=== PATIENT | female | born 1950 | race Caucasian/White ===

== ENCOUNTER 2020-07-04 12:52 | Outpatient (CLI) | payer MEDICARE, SELFPAY ==
--- NOTE | 2020-07-04 13:45 | MR_ITS ---
WS: [id number] MRI CERVICAL SPINE HISTORY: CERVICAL DISC DISORDER COMPARISON: None available. Normal cervical alignment with no compression fracture or significant disc space narrowing. Minimal disc desiccation throughout the cervical spine without narrowing. No marrow edema or fracture . Craniocervical junction, C1 and C2 relationship, odontoid process and soft tissues are normal. C2-C3: Normal. C3-C4: Mild osteophytic ridging and annular disc bulging with a shallow central disc protrusion. Mild narrowing of the central canal. C4-C5: Mild annular disc bulging and small foraminal osteophytes. Mild narrowing of the central canal . C5-C6: Diffuse annular disc bulging and osteophytic ridging. Effacement of CSF. Mild to moderate cent ral and bilateral foraminal stenosis. Slightly greater RIGHT foraminal narrowing. C6-C7: Mild annular disc bulging without stenosis. C7-T1: Normal. Paraspinal soft tissue are normal. MR/MR cervical spin wo con* [id number] IMPRESSION: 1. Mild to moderate central and bilateral foraminal stenosis, RIGHT greater th an LEFT at C5-6. 2. Very mild narrowing of the central canal at C3-4 and C4-5.
== END 2020-07-04 12:53 | disposition home or self-care (01) ==
LOC: RADSHAW 12:54
PROVIDERS: PCP Family Medicine; Visit Provider Family Medicine
DX: M50.90 Cervical disc disorder, unspecified, unspecified cervical region (principal); M48.02 Spinal stenosis, cervical region
CPT/HCPCS: 72141

== ENCOUNTER 2020-08-16 06:00 | Outpatient (RCR) | payer MEDICARE, SELFPAY | END 2020-09-10 23:59 | disposition home or self-care (01) | LOC: APT 06:00 | PROVIDERS: PCP Family Medicine; Visit Provider Family Medicine | DX: M50.90 Cervical disc disorder, unspecified, unspecified cervical region (principal) | CPT/HCPCS: 97110; 97162 ==

== ENCOUNTER 2020-09-11 06:00 | Outpatient (RCR) | payer MEDICARE, SELFPAY | END 2020-10-08 23:59 | disposition home or self-care (01) | LOC: APT 06:00 | PROVIDERS: PCP Family Medicine; Visit Provider Family Medicine | DX: M50.90 Cervical disc disorder, unspecified, unspecified cervical region (principal) | CPT/HCPCS: 97110 ==

== ENCOUNTER 2021-08-23 13:55 | Outpatient (CLI) | payer MEDICARE, SELFPAY ==
--- NOTE | 2021-08-23 14:05 | MM_ITS ---
WS: [id number] BILATERAL DIGITAL SCREENING MAMMOGRAPHY WITH CAD CLINICAL INFORMATION: SCREENING HISTORY: Screening mammogram. No current complaints. COMPARISON: TECHNIQUE: Bilateral CC and MLO views. FINDINGS: Scattered fibroglandular densities bilaterally. Punctate and lucent centered calcifications. 9 mm asy mmetric ovoid density posterior depth right breast best seen on the cc view outer quadrant. This appe ars new since 2018. Recommend further evaluation with spot compression views and ultrasound. Benign p unctate clustered calcifications. Left breast is unremarkable and unchanged. MM/[place] [id number] IMPRESSION: BI-RADS: 0-Incomplete: Need additional imaging evaluation FOLLOW UP: Need Additional Imaging RECOMMEND RIGHT BREAST DIAGNOSTIC MAMMOGRAPHY AND ULTRASOUND IN FURTHER EVALUAT ION.
--- NOTE | 2021-08-23 15:05 | XR_ITS ---
WS: [id number] DEXA (DUAL ENERGY X-RAY ABSORPTIOMETRY) Bone mineral density was performed using a [employer] machine. HISTORY: POSTMENOPAUSAL COMPARISON: 03/02/2014 Lumbar spine BMD (L1-L4): 1.333 g/cm2 T score: 1.3 Z score: 2.2 Total hip BMD: Left: 1.129 g/cm2. T score: 1.0 Z score: 2.0 Right: 1.145 g/cm2. T score: 1.1 Z score: 2.1 10 year probability of a major osteoporotic fracture is 7%. Compared to the prior study from 03/02/2014. Lumbar spine bone mineral density has increased by 3.2%. Bilateral hips bone mineral density has decreased by 2.9%. XR/XR DEXA axial skeleton* [id number] IMPRESSION: NORMAL BONE MINERAL DENSITY based upon the WHO classification for females. Very mild improvement in bone mineral density within the lumbar spine but significa nt decrease of bone mineral density within the hips.
== END 2021-08-23 13:56 | disposition home or self-care (01) ==
LOC: RADSHAW 14:03
PROVIDERS: PCP Family Medicine; Visit Provider Family Medicine
DX: Z12.31 Encounter for screening mammogram for malignant neoplasm of breast (principal); Z78.0 Asymptomatic menopausal state
CPT/HCPCS: 77067; 77080

== ENCOUNTER 2021-09-18 10:14 | Outpatient (CLI) | payer MEDICARE, SELFPAY ==
--- NOTE | 2021-09-18 10:26 | US_ITS ---
WS: [id number] RIGHT DIGITAL MAMMOGRAPHY WITH CAD CLINICAL INFORMATION: ABNORMAL MAMMOGRAM RT BREAST COMPARISON: None. TECHNIQUE: 4 views of the right breast were obtained. FINDINGS: Scattered fibroglandular densities of the right breast. Incidental punctate calcifications RIGHT sera st. Vascular calcification. Again seen is a 9 mm asymmetric ovoid density posterior depth RIGHT breas t. This partially compresses out on the spot compression views. Ultrasound is pending. . ULTRASOUND BREAST RIGHT TECHNIQUE: Ultrasound right breast focused area of concern. CLINICAL INFORMATION: ABNORMAL MAMMOGRAM RT BREAST FINDINGS: Ultrasound RIGHT breast 9 to 12:00 position. Dense underlying band of parenchymal tissue 9 o'clock po sition 3 cm from the nipple. No cystic or solid lesions. No suspicious findings. No lesions to target for biopsy. US/US breast RT limited* [id number] IMPRESSION: BI-RADS: 2-Benign FOLLOW UP: 1 Year Follow-up Recommend return to annual screening mammography.
== END 2021-09-18 10:15 | disposition home or self-care (01) ==
LOC: RADSHAW 10:18
PROVIDERS: PCP Family Medicine; Visit Provider Family Medicine
DX: R92.8 Other abnormal and inconclusive findings on diagnostic imaging of breast (principal)
CPT/HCPCS: 76642; 77065

== ENCOUNTER 2021-10-02 08:43 | Outpatient (CLI) | payer MEDICARE, SELFPAY ==
--- NOTE | 2021-10-02 08:50 | XR_ITS ---
WS: [id number] Exam: XR hip LT 2-3V wo/w pel* [id number] Date/Time of Exam: 10/02/2021 9:02 AM Reason For Exam: LEFT LEG PAIN No acute fracture or dislocation. The joint compartment relatively well maintained. There is soft tis jacek calcification along the greater trochanter that might reflect calcific bursitis. Bony changes of the visualized pelvis that might represent diffuse idiopathic skeletal hyperostosis XR/XR hip LT 2-3V wo/w pel* [id number] IMPRESSION: 1. No fracture or dislocation. 2. Calcification along the greater trochanter that might reflect calcific bursi tis.
--- NOTE | 2021-10-02 08:50 | XR_ITS ---
WS: [id number] Exam: XR femur LT min 2V* [id number] Date/Time of Exam: 10/02/2021 9:02 AM Reason For Exam: LEFT LEG PAIN No fracture or dislocation. Unremarkable soft tissues. Soft tissue ossifications along the greater tr ochanter that might reflect calcific bursitis. XR/XR femur LT min 2V* [id number] IMPRESSION: 1. No fracture or dislocation. 2. Soft tissue ossification along the greater trochanter that might represent c alcific bursitis.
--- NOTE | 2021-10-02 08:50 | XR_ITS ---
WS: [id number] Exam: XR knee LT 1-2V [id number] Date/Time of Exam: 10/02/2021 9:02 AM Reason For Exam: LEFT LEG PAIN No fracture or dislocation noted. No joint effusion. The joint compartments are relatively well maint ained. XR/XR knee LT 1-2V [id number] IMPRESSION: 1. Negative left knee.
== END 2021-10-02 08:44 | disposition home or self-care (01) ==
LOC: RAD 08:48
PROVIDERS: PCP Family Medicine; Visit Provider Family Medicine
DX: M79.605 Pain in left leg (principal)
CPT/HCPCS: 73502; 73552; 73560

== ENCOUNTER → 2021-12-11 13:11 | Outpatient (BNVA) | payer MEDICARE, SELFPAY | PROVIDERS: PCP Family Medicine; Visit Provider Family Medicine | DX: M54.9 Dorsalgia, unspecified (principal); E03.9 Hypothyroidism, unspecified; I10 Essential (primary) hypertension | CPT/HCPCS: 84443 ==

== ENCOUNTER → 2022-04-26 09:26 | Outpatient (BNVA) | payer MEDICARE, SELFPAY | PROVIDERS: PCP Family Medicine; Visit Provider Family Medicine | DX: R30.0 Dysuria (principal) | CPT/HCPCS: 81000; 87077; 87086; 87184 ==

== ENCOUNTER → 2022-05-16 10:57 | Outpatient (BNVA) | payer MEDICARE, SELFPAY | PROVIDERS: PCP Family Medicine; Visit Provider Family Medicine | DX: N39.0 Urinary tract infection, site not specified (principal); R10.9 Unspecified abdominal pain | CPT/HCPCS: 81000 ==

== ENCOUNTER → 2022-08-06 09:29 | Outpatient (BNVA) | payer MEDICARE, SELFPAY | PROVIDERS: PCP Family Medicine; Visit Provider Family Medicine | DX: Z00.00 Encounter for general adult medical examination without abnormal findings (principal); E11.9 Type 2 diabetes mellitus without complications; R30.0 Dysuria; R10.9 Unspecified abdominal pain | CPT/HCPCS: 80053; 80061; 81000; 83036; 85025; 87086 ==

== ENCOUNTER → 2022-09-13 11:19 | Outpatient (BNVA) | payer MEDICARE, SELFPAY | PROVIDERS: PCP Family Medicine; Visit Provider Family Medicine | DX: E87.1 Hypo-osmolality and hyponatremia (principal) | CPT/HCPCS: 80048 ==

== ENCOUNTER 2022-10-21 08:47 | Outpatient (CLI) | payer MEDICARE, SELFPAY ==
--- NOTE | 2022-10-21 09:02 | MM_ITS ---
WS: [id number] BILATERAL SCREENING DIGITAL TOMOSYNTHESIS MAMMOGRAM WITH CAD HISTORY: SCREENING COMPARISON: 09/18/2021, 03/02/2014, 03/17/2014, 05/25/2015 Bilateral CC and MLO views with tomosynthesis and synthetic mammography submitted. Computer aided det ection analyzed. Breast composition: There are scattered areas of fibroglandular density. No suspicious masses, microc alcifications or architectural distortion. Bilateral breast calcifications are benign. MM/[place] [id number] IMPRESSION: BI-RADS: 2-Benign FOLLOW UP: 1 Year Follow-up
== END 2022-10-21 08:48 | disposition home or self-care (01) ==
PROVIDERS: PCP Family Medicine; Visit Provider Family Medicine
DX: Z12.31 Encounter for screening mammogram for malignant neoplasm of breast (principal)
CPT/HCPCS: 77063; 77067

== ENCOUNTER 2022-11-06 05:02 | Emergency (ER) | payer MEDICARE, SELFPAY ==
[2022-11-06 05:12] VITALS: BP 199/64; PULSE 69; RESP 18; TEMP 36.6; O2SAT 95
--- NOTE | 2022-11-06 05:17 | ED_ITS ---
Documented by User: Long Daugherty MD 11/06/22 05:47 HPI - Headache General: Chief Complaint: Headache Stated Complaint: left ear pain Time Seen by Provider: 11/06/22 05:04 Source: patient Mode of arrival: ambulatory Limitations: no limitations History of Present Illness: 71-year-old female states that she has had a headache along with some left ear pain that is gradually began over the last 3 days states her pain is currently a 7 out of 10 its gradually worsened this is n ot the worst take of her life denies any neck pain or stiffness denies any fevers. She denies any blurred vision. She does have a history of hypertension she states she has not taken her hydrochlorothiazide because her sodium was too low she is hypertensive here. Associated symptoms: Deny chest pain, fever(s), nausea, rash or vomiting Review of Systems Const: Denies: fever(s), chills, body aches or change in appetite Eyes: Denies: blurry vision or eye discomfort ENMT: Reports: ear or mastoid pain; Denies: throat pain or dental pain Card: Denies: chest pain Resp: Denies: dyspnea GI: Denies: abdominal pain, nausea, vomiting or diarrhea : Denies: dysuria Musc: Denies: neck pain or back pain Skin/Breast: Denies: rash Neuro: Reports: headache(s) Psych: Denies: depression Adolfo/Lymph: Denies: easy bruising All/Imm: Denies: urticaria PFSH ED PFSH: Medical History Hypertension Social History Smoking and tobacco status: never smoked Alcohol intake: never Physical Exam Const: COMMON NORMALS: no acute distress and patient oriented x3 HENMT: COMMON NORMALS: normocephalic, atraumatic and TM's normal bilaterally HEAD & SCALP: normocephalic and atraumatic TYMPANIC MEMBRANE: TM's normal bilaterally OTHER: no mastoid tenderness Eye: COMMON NORMALS: Equal, round and reactive pupils present and EOMs intact bilaterally PUPIL: Yes Equal, round and reactive pupils present Neck/C-Spine: COMMON NORMALS: full ROM and supple Chest: COMMONS NORMALS: normal inspection of the chest and normal palpation of entire chest wall Resp: COMMON NORMALS: normal respiratory effort, No retractions, No use of accessory muscles and clear to auscultation bilaterally AUSCULTATION: clear to auscultation bilaterally Cardio: COMMON NORMALS: regular rate, regular rhythm and No murmurs present (Cardio) RATE: regular rate RHYTHM: regular rhythm GI: COMMON NORMALS: Normal to inspection, nondistended, normoactive bowel sounds present, Soft to palpation, non-tender and no masses PALPATION: Yes Soft to palpation Extremity: COMMON NORMALS: normal to inspection and full ROM Neuro: COMMON NORMALS: patient oriented x3, moves all extremities and no focal motor deficits Psych: COMMON NORMALS: mental status grossly normal, Normal thought process present and cooperative THOUGHT PROCESS: Normal thought process present Skin: COMMON NORMALS: no rashes or lesions noted and no wounds GENERAL SKIN EXAM: no rashes or lesions noted Course Vital Signs: Vital signs: Vital Signs Temperature 97.8 F 11/06/22 05:12 Pulse Rate 70 11/06/22 07:09 Respiratory Rate 14 11/06/22 07:09 Blood Pressure 152/87 11/06/22 07:09 Pulse Oximetry 95 11/06/22 07:09 Oxygen Delivery Me thod 11/06/22 07:09 MDM - Headache Lab Data 11/06/22 05:50 11/06/22 05:[address] 11/06/22 05:45 IMPRESSION: 1. No acute intracranial abnormality. 2. Moderate chronic microvascular ischemic disease. Chest X-Ray 11/06/22 07:23 IMPRESSION: Unremarkable chest radiograph. Laboratory Results WBC 5.8 10^3/uL (4.0-10.0) 11/06/22 05:50 RBC 4.67 10^6/uL (4.1-5.3) 11/06/22 05:50 Hgb 13.2 g/dL (11.5-15.3) 11/06/22 05:50 Hct 41.8 % (37.0-47.0) 11/06/22 05:50 MCV 89.5 fl (81-99) 11/06/22 05:50 MCH 28.3 pg (28.0-34.0) 11/06/22 05:50 MCHC 31.6 g/dL (30.0-36.0) 11/06/22 05:50 RDW 14.1 % (12.1-15.1) 11/06/22 05:50 Plt Count 199 10^3/cmm (130-400) 11/06/22 05:50 MPV 10.2 fL (7.4-10.4) 11/06/22 05:50 Neut % (Auto) 53.5 % 11/06/22 05:50 Lymph % (Auto) 35.6 % 11/06/22 05:50 Allen % (Auto) 5.8 % 11/06/22 05:50 Eos % (Auto) 4.1 % 11/06/22 05:50 Baso % (Auto) 0.7 % 11/06/22 05:50 Neut # (Auto) 3.12 10^3/uL (1.8-7.7) 11/06/22 05:50 Lymph # (Auto) 2.1 10^3/uL (0.8-4.8) 11/06/22 05:50 Allen # (Auto) 0.3 10^3/uL (0.2-0.9) 11/06/22 05:50 Eos # (Auto) 0.2 10^3/uL (0.0-0.8) 11/06/22 05:50 Baso # (Auto) 0.0 10^3/uL (0.0-0.1) 11/06/22 05:50 Nucleated RBC % (auto) 0 % 11/06/22 05:50 Nucleated RBCs # 0.0 /100WBC 11/06/22 05:50 Sodium 137 mmol/L (136-145) 11/06/22 05:50 Potassium 3.9 mmol/L (3.5-5.1) 11/06/22 05:50 Chloride 105 mmol/L (98-107) 11/06/22 05:50 Carbon Dioxide 21 mmol/L (22-29) L 11/06/22 05:50 Anion Gap 14.9 (5-19) 11/06/22 05:50 BUN 9 mg/dL (8-23) 11/06/22 05:50 Creatinine 0.8 mg/dL (0.5-0.9) 11/06/22 05:50 GFR Calculation Not Reportable 11/06/22 05:50 Glucose 113 mg/dL (65-115) 11/06/22 05:50 Calculated Osmolality 283 mOsm/kg (285-295) L 11/06/22 05:50 Calcium 9.2 mg/dL (8.5-10.5) 11/06/22 05:50 Total Bilirubin 0.4 mg/dL (0.15-1.2) 11/06/22 05:50 AST 19 U/L (0-32) 11/06/22 05:50 ALT 14 U/L (0-33) 11/06/22 05:50 Alkaline Phosphatase 102 U/L (35-105) 11/06/22 05:50 Troponin T Baseline 7 ng/L (0-10) 11/06/22 05:50 Troponin T 120 Minute 6.00 ng/L (0-10) 11/06/22 08:17 Delta Troponin T -1 ABS# (0-10) L 11/06/22 08:17 Total Protein 7.4 g/dL (6.6-8.7) 11/06/22 05:50 Albumin 3.9 g/dL (3.5-5.2) 11/06/22 05:50 Globulin 3.5 g/dL (1.3-4.6) 11/06/22 05:50 Discharge Plan Discharge Patient Disposition: Home Clinical Impression: Headache, Earache Condition: Stable Prescriptions: New Naprosyn 500 mg tablet 500 mg PO BID PRN (Reason: pain) Qty: 20 0RF Norvasc 10 mg tablet 10 mg PO DAILY Qty: 30 0RF lisinopril 10 mg tablet 10 mg PO DAILY Qty: 30 0RF aspirin 81 mg tablet,delayed release (DR/EC) 81 mg PO DAILY Qty: 30 0RF No Action levothyroxine 75 mcg tablet 75 mcg PO DAILY hydrochlorothiazide 25 mg tablet See Rx Instructions .ROUTE .COMPLEX Qty: 90 3RF Hold Instructions: low sodium Dose Instruction: TAKE 1 TABLET BY MOUTH ONCE DAILY Rx Instructions: TAKE 1 TABLET BY MOUTH ONCE DAILY potassium chloride 10 mEq capsule, extended release See Rx Instructions .ROUTE .COMPLEX Qty: 90 3RF Dose Instruction: TAKE 1 CAPSULE BY MOUTH DAILY Rx Instructions: TAKE 1 CAPSULE BY MOUTH DAILY omeprazole 20 mg capsule,delayed release(DR/EC) See Rx Instructions .ROUTE .COMPLEX Qty: 90 3RF Dose Instruction: TAKE 1 CAPSULE BY MOUTH ONCE DAILY FOR GERD Rx Instructions: TAKE 1 CAPSULE BY MOUTH ONCE DAILY FOR GERD Discharge Orders: Discharge ED (Routine); Ordered 11/06/22 Ordered By: Geovany Mariscal Referrals: Solo Sanchez MD [Primary Care Provider] - Discharge Diet: Advance as tolerated Discharge Activity: Resume usual activity Patient Instructions: Acute Headache (ED), Earache (ED), Hypertension (ED) Activity Restrictions/Additional Instructions: You were seen today for headache elevated blood pressure CT and cardiac enzymes EKGs were all normal. Recommend you start on Norvasc 10 mg daily lisinopril 10 mg daily as well as aspirin daily follow-up with your primary care doctor in 2 days to recheck your blood pressure. Sign Out Sign Out Data: Patient Sign Out occurred on 11/06/22 at 06:03. Patient's care was discussed, and care was transferred from to Geovany Mariscal DO. Coding Level of Care Code ED Double Ending Machine Operator for Chg Fwd Documented by User: Geovany Mariscal DO 11/06/22 13:51 HPI - Headache General: Chief Complaint: Headache Stated Complaint: left ear pain Time Seen by Provider: 11/06/22 05:04 [facility] ED PFSH: Medical History Hypertension Social History Smoking and tobacco status: never smoked Alcohol intake: never Course Vital Signs: Vital signs: Vital Signs Temperature 97.8 F 11/06/22 05:12 Pulse Rate 70 11/06/22 07:09 Respiratory Rate 14 11/06/22 07:09 Blood Pressure 152/87 11/06/22 07:09 Pulse Oximetry 95 11/06/22 07:09 Oxygen Delivery Me thod 11/06/22 07:09 MDM - Headache Medical Decision Making Patient care handoff received from Dr. Willow continuation of ED evaluation. I personally saw and evaluated patient and reperformed pinto portions of E/M. CT of head negative blood pressure controlled cardiac enzymes done were also negative. Labs unremarkable overall clinically patient has no focal logic deficits no indication for of emergent condition at this point we will discharge patient home on Norvasc and lisinopril follow-up with Dr. Rojas within the next 2 days to reevaluate blood pressure. Return if is further problems. Medical Records I reviewed the patient's medical records. Lab Data I reviewed the patient's lab results. 11/06/22 05:50 11/06/22 05:[address] 11/06/22 05:45 IMPRESSION: 1. No acute intracranial abnormality. 2. Moderate chronic microvascular ischemic disease. Chest X-Ray 11/06/22 07:23 IMPRESSION: Unremarkable chest radiograph. Laboratory Results WBC 5.8 10^3/uL (4.0-10.0) 11/06/22 05:50 RBC 4.67 10^6/uL (4.1-5.3) 11/06/22 05:50 Hgb 13.2 g/dL (11.5-15.3) 11/06/22 05:50 Hct 41.8 % (37.0-47.0) 11/06/22 05:50 MCV 89.5 fl (81-99) 11/06/22 05:50 MCH 28.3 pg (28.0-34.0) 11/06/22 05:50 MCHC 31.6 g/dL (30.0-36.0) 11/06/22 05:50 RDW 14.1 % (12.1-15.1) 11/06/22 05:50 Plt Count 199 10^3/cmm (130-400) 11/06/22 05:50 MPV 10.2 fL (7.4-10.4) 11/06/22 05:50 Neut % (Auto) 53.5 % 11/06/22 05:50 Lymph % (Auto) 35.6 % 11/06/22 05:50 Allen % (Auto) 5.8 % 11/06/22 05:50 Eos % (Auto) 4.1 % 11/06/22 05:50 Baso % (Auto) 0.7 % 11/06/22 05:50 Neut # (Auto) 3.12 10^3/uL (1.8-7.7) 11/06/22 05:50 Lymph # (Auto) 2.1 10^3/uL (0.8-4.8) 11/06/22 05:50 Allen # (Auto) 0.3 10^3/uL (0.2-0.9) 11/06/22 05:50 Eos # (Auto) 0.2 10^3/uL (0.0-0.8) 11/06/22 05:50 Baso # (Auto) 0.0 10^3/uL (0.0-0.1) 11/06/22 05:50 Nucleated RBC % (auto) 0 % 11/06/22 05:50 Nucleated RBCs # 0.0 /100WBC 11/06/22 05:50 Sodium 137 mmol/L (136-145) 11/06/22 05:50 Potassium 3.9 mmol/L (3.5-5.1) 11/06/22 05:50 Chloride 105 mmol/L (98-107) 11/06/22 05:50 Carbon Dioxide 21 mmol/L (22-29) L 11/06/22 05:50 Anion Gap 14.9 (5-19) 11/06/22 05:50 BUN 9 mg/dL (8-23) 11/06/22 05:50 Creatinine 0.8 mg/dL (0.5-0.9) 11/06/22 05:50 GFR Calculation Not Reportable 11/06/22 05:50 Glucose 113 mg/dL (65-115) 11/06/22 05:50 Calculated Osmolality 283 mOsm/kg (285-295) L 11/06/22 05:50 Calcium 9.2 mg/dL (8.5-10.5) 11/06/22 05:50 Total Bilirubin 0.4 mg/dL (0.15-1.2) 11/06/22 05:50 AST 19 U/L (0-32) 11/06/22 05:50 ALT 14 U/L (0-33) 11/06/22 05:50 Alkaline Phosphatase 102 U/L (35-105) 11/06/22 05:50 Troponin T Baseline 7 ng/L (0-10) 11/06/22 05:50 Troponin T 120 Minute 6.00 ng/L (0-10) 11/06/22 08:17 Delta Troponin T -1 ABS# (0-10) L 11/06/22 08:17 Total Protein 7.4 g/dL (6.6-8.7) 11/06/22 05:50 Albumin 3.9 g/dL (3.5-5.2) 11/06/22 05:50 Globulin 3.5 g/dL (1.3-4.6) 11/06/22 05:50 Discharge Plan Discharge Patient Disposition: Home Clinical Impression: Headache, Earache Condition: Stable Prescriptions: New Naprosyn 500 mg tablet 500 mg PO BID PRN (Reason: pain) Qty: 20 0RF Norvasc 10 mg tablet 10 mg PO DAILY Qty: 30 0RF lisinopril 10 mg tablet 10 mg PO DAILY Qty: 30 0RF aspirin 81 mg tablet,delayed release (DR/EC) 81 mg PO DAILY Qty: 30 0RF No Action levothyroxine 75 mcg tablet 75 mcg PO DAILY hydrochlorothiazide 25 mg tablet See Rx Instructions .ROUTE .COMPLEX Qty: 90 3RF Hold Instructions: low sodium Dose Instruction: TAKE 1 TABLET BY MOUTH ONCE DAILY Rx Instructions: TAKE 1 TABLET BY MOUTH ONCE DAILY potassium chloride 10 mEq capsule, extended release See Rx Instructions .ROUTE .COMPLEX Qty: 90 3RF Dose Instruction: TAKE 1 CAPSULE BY MOUTH DAILY Rx Instructions: TAKE 1 CAPSULE BY MOUTH DAILY omeprazole 20 mg capsule,delayed release(DR/EC) See Rx Instructions .ROUTE .COMPLEX Qty: 90 3RF Dose Instruction: TAKE 1 CAPSULE BY MOUTH ONCE DAILY FOR GERD Rx Instructions: TAKE 1 CAPSULE BY MOUTH ONCE DAILY FOR GERD Discharge Orders: Discharge ED (Routine); Ordered 11/06/22 Ordered By: Geovany Mariscal Referrals: Solo Sanchez MD [Primary Care Provider] - Discharge Diet: Advance as tolerated Discharge Activity: Resume usual activity Patient Instructions: Acute Headache (ED), Earache (ED), Hypertension (ED) Activity Restrictions/Additional Instructions: You were seen today for headache elevated blood pressure CT and cardiac enzymes EKGs were all normal. Recommend you start on Norvasc 10 mg daily lisinopril 10 mg daily as well as aspirin daily follow-up with your primary care doctor in 2 days to recheck your blood pressure. Sign Out Sign Out Data: Patient Sign Out occurred on 11/06/22 at 06:03. Patient's care was discussed, and care was transferred from to Geovany Mariscal DO. Coding Level of Care Code ED Double Ending Machine Operator for Meenakshi Paige
[2022-11-06] MEDS: HYDROcodone-acetaminophen 5-325 mg Tablet 1 TAB PO (05:26)
[2022-11-06] MEDS: hyDRALAzine 20 mg/mL INJ 1 mL 10 MG IM (05:26)
--- NOTE | 2022-11-06 05:45 | CTR_ITS ---
PROCEDURE INFORMATION: Exam: CT Head Without Contrast Exam date and time: 11/06/2022 6:38 AM Age: 71 years old Clinical indication: Pain; Headache; Additional info: SMITH TECHNIQUE: Imaging protocol: Computed tomography of the head without contrast. Radiation optimization: All CT scans at this facility use at least one of these dose optimization techniques: automated exposure control; mA and/or kV adjustment per patient size (includes targeted exams where dose is matched to clinical indication); or iterative reconstruction. REPORTING DATA: Count of CT and Cardiac NM exams in prior 12 months: This patient has received 0 known CTs and 0 known cardiac nuclear medicine studies in the 12 months prior to the current study. COMPARISON: MR head wo/w con [id number] 04/26/2019 8:33 AM RADIATION DOSE METRICS: Total DLP (mGy-cm): 1077.54 FINDINGS: Brain: No acute hemorrhage identified. No large territorial areas of hypoattenuation concerning for ischemic infarct identified. No intracranial mass effect. Subcortical and periventricular white matter hypoattenuation likely consistent with moderate chronic microvascular ischemic disease. Cerebral ventricles: The ventricles are within normal limits. Paranasal sinuses: The visualized sinuses are unremarkable. Mastoid air cells: The visualized mastoid air cells are well aerated. Bones/joints: The osseous structures are intact. Soft tissues: Unremarkable. CT/CT head wo con* [id number] IMPRESSION: 1. No acute intracranial abnormality. 2. Moderate chronic microvascular ischemic disease.
[2022-11-06 05:46] VITALS: BP 190/77
[2022-11-06 06:02] LABS: Basophils % 0.7 %; Eosinophils # 0.2 10^3/uL (0.0-0.8); Eosinophils % 4.1 %; Hematocrit 41.8 % (37.0-47.0); Hemoglobin 13.2 g/dL (11.5-15.3); Lymphocytes # 2.1 10^3/uL (0.8-4.8); Lymphocytes % 35.6 %; Mean Corpuscular HGB Conc 31.6 g/dL (30.0-36.0); Mean Corpuscular Hemoglobin 28.3 pg (28.0-34.0); Mean Corpuscular Volume 89.5 fl (81-99); Mean Platelet Volume 10.2 fL (7.4-10.4); Monocytes # 0.3 10^3/uL (0.2-0.9); Monocytes % 5.8 %; Neutrophils # 3.12 10^3/uL (1.8-7.7); Neutrophils % 53.5 %; Nucleated Red Blood Cells % 0 %; Platelet Count 199 10^3/cmm (130-400); Red Blood Count 4.67 10^6/uL (4.1-5.3); Red Cell Distribution Width 14.1 % (12.1-15.1); White Blood Count 5.8 10^3/uL (4.0-10.0)
[2022-11-06] MEDS: lisinopril 10 mg Tablet PO (06:09)
[2022-11-06] MEDS: enalaprilat 1.25 mg/mL Inj 0.625 MG IVP (06:10)
[2022-11-06] MEDS: hyDRALAzine 20 mg/mL INJ 1 mL 10 MG IVP (06:10)
[2022-11-06 06:21] LABS: Alanine Aminotransferase 14 U/L (0-33); Albumin Level 3.9 g/dL (3.5-5.2); Alkaline Phosphatase 102 U/L (35-105); Anion Gap 14.9 (5-19); Aspartate Amino Transferase 19 U/L (0-32); Blood Urea Nitrogen 9 mg/dL (8-23); Calcium 9.2 mg/dL (8.5-10.5); Carbon Dioxide 21 mmol/L (22-29); Chloride 105 mmol/L (98-107); Globulin 3.5 g/dL (1.3-4.6); Glucose 113 mg/dL (65-115); Osmolality Calculated 283 mOsm/kg (285-295); Potassium 3.9 mmol/L (3.5-5.1); Sodium 137 mmol/L (136-145); Total Bilirubin 0.4 mg/dL (0.15-1.2); Total Protein 7.4 g/dL (6.6-8.7)
[2022-11-06 06:30] VITALS: BP 166/88; PULSE 73; RESP 24; O2SAT 98
--- NOTE | 2022-11-06 06:32 | PC.NURSE ---
to room with pt. pt c/o cramping in left leg/right arm/abd that was not a symptom prior. also coughing to clear her throat saying it is very dry. md notified to come to room and assess the pt due to symptom change. EKG ordered and completed. pt states she is hurting in her kidneys and feels like she needs to urinate, however, when bsc brought to room, she is unable to urinate.
[2022-11-06 07:09] VITALS: BP 152/87; PULSE 70; RESP 14; O2SAT 95
--- NOTE | 2022-11-06 07:23 | XR_ITS ---
WS: [id number] Exam: XR chest 1V portable [id number] Date/Time of Exam: 11/06/2022 7:33 AM Reason For Exam: chest pain Comparison 10/01/2016. Findings: The lungs are clear and fully expanded. Costophrenic angles are sharp. No infiltrates. Bronchovascula r relief appears normal. Cardiac silhouette is unremarkable. Bony elements are intact. XR/XR chest 1V portable [id number] IMPRESSION: Unremarkable chest radiograph.
--- NOTE | 2022-11-06 07:35 | ECG_ITS ---
[facility] Test Date: 2022-11-06 Pat Name: Nahed Carcamo Department: Room: Gender: Female Technical Support Representative: : 1950 Requested By: Geovany Menjivar Order Number: [id number] Leroy MD: Jasbir Oliver M.D. Measurements Intervals [place] Rate: 75 P: 55 OR: 144 QRS: 15 QRSD: 87 T: 58 QT: 402 QTc: 450 Interpretive Statements SINUS RHYTHM NONSPECIFIC T-WAVE ABNORMALITY Compared to ECG 07/31/2017 05:31:44 Sinus arrhythmia no longer present T-wave abnormality still present Electronically Signed On 11-06-2022 23:51:52 CDT by Jasbir Oliver M.D. [id number]
[2022-11-06 07:52] LABS: Troponin(5th) Baseline 7 ng/L (0-10)
[2022-11-06] MEDS: acetaminophen 500 mg Tablet 1000 MG PO (08:46)
[2022-11-06 09:30] LABS: Troponin 5 2HR Delta -1 ABS# (0-10)
== END 2022-11-06 10:25 | disposition home or self-care (01) ==
PROVIDERS: Emergency Medicine; Emergency Provider Family Medicine; PCP Family Medicine
DX: R51.9 Headache, unspecified (principal); H92.02 Otalgia, left ear; I10 Essential (primary) hypertension
CPT/HCPCS: 36415; 70450; 71045; 80053; 84484; 85025; 93005; 96372; 96374; 96375; 99285; J0360; J3490

== ENCOUNTER → 2022-11-07 06:54 | Outpatient (BNVA) | payer MEDICARE, SELFPAY | PROVIDERS: PCP Family Medicine; Visit Provider Family Medicine | DX: R10.9 Unspecified abdominal pain (principal); N39.0 Urinary tract infection, site not specified | CPT/HCPCS: 81000; 87086 ==

== ENCOUNTER 2022-11-26 16:25 | Outpatient (CLI) | payer MEDICARE, SELFPAY ==
--- NOTE | 2022-11-26 16:45 | MR_ITS ---
WS: [id number] MRI HEAD WITH CONTRAST TECHNIQUE: Sagittal T1, T2 axial, T2 axial FLAIR, axial susceptibility weighted imaging, axial diffus ion weighted images, and coronal T2 images were obtained. Pre and post-T1 axial and post T1 coronal i mages. ADC and FSPGR images. CLINICAL INFORMATION: diplopia, sub acute. r/o CVA COMPARISON: CT November 06, 2022 and MRI 9 16,019 FINDINGS: No evidence restricted diffusion to suggest acute ischemia. Ventricular system and basal cisterns are patent. Advanced small vessel changes. Mild parenchymal volume loss. Small vessel changes in the jesse s. Normal vascular flow voids at the skull base. No extra-axial fluid collections. RIGHT maxillary sinusitis with air-fluid level. Mild mucosal thickening RIGHT mastoid tip. LEFT masto id air cells well aerated. No hemosiderin on susceptibly weighted images. Mild symmetric atrophy temp oral lobes and hippocampal formations. No abnormal gadolinium enhancement. Normal dural venous sinuse s. Normal optic chiasm and pituitary infundibulum. Cavernous sinuses and Meckel's cave appear normal . MR/MR head wo/w con [id number] IMPRESSION: 1. No evidence of restricted diffusion to suggest acute ischemia. 2. Advanced small vessel changes with mild parenchymal volume loss. Small vess el changes in the polly. Small vessel changes slightly progressed compared to but similar in appearance. 3. RIGHT maxillary sinusitis with air-fluid level. 4. No hemosiderin on the susceptibly weighted images. 5. No abnormal intracranial enhancement. 6. No other acute findings.
[2022-11-26] MEDS: gadobenate dimeglumine 20 mL vial IV (17:34)
== END 2022-11-26 16:26 | disposition home or self-care (01) ==
LOC: RAD 16:30
PROVIDERS: PCP Family Medicine; Visit Provider Family Medicine
DX: H53.2 Diplopia (principal); J32.9 Chronic sinusitis, unspecified
CPT/HCPCS: 70553; A9577

== ENCOUNTER → 2023-01-10 09:47 | Outpatient (BNVA) | payer MEDICARE, SELFPAY | PROVIDERS: PCP Family Medicine; Visit Provider Family Medicine | DX: I10 Essential (primary) hypertension (principal); E87.1 Hypo-osmolality and hyponatremia; E11.9 Type 2 diabetes mellitus without complications | CPT/HCPCS: 80053; 80061; 83036 ==

== ENCOUNTER → 2023-03-22 10:49 | Outpatient (BNVA) | payer MEDICARE, SELFPAY | PROVIDERS: PCP Family Medicine; Visit Provider Emergency Medicine | DX: R39.9 Unspecified symptoms and signs involving the genitourinary system (principal) | CPT/HCPCS: 81000; 87086 ==

== ENCOUNTER 2023-04-02 18:11 | Observation (INO) | payer MEDICARE, SELFPAY ==
[2023-04-02 18:21] VITALS: BP 158/93; PULSE 67; RESP 18; TEMP 36.4; O2SAT 96
[2023-04-02 20:42] LABS: Basophils # 0.1 10^3/uL (0.0-0.1); Basophils % 0.5 %; Eosinophils # 0.2 10^3/uL (0.0-0.8); Eosinophils % 2.4 %; Hematocrit 43.2 % (36-47); Lymphocytes # 1.6 10^3/uL (0.8-4.8); Lymphocytes % 15.8 %; Mean Corpuscular HGB Conc 31.3 g/dL (30-55); Mean Corpuscular Volume 89.6 fl (85-98); Mean Platelet Volume 11.2 fL (7.4-10.4); Monocytes # 0.4 10^3/uL (0.2-0.9); Monocytes % 4.3 %; Neutrophils # 7.53 10^3/uL (1.8-7.7); Neutrophils % 76.5 %; Nucleated Red Blood Cells % 0 %; Platelet Count 219 10^3/cmm (157-399); Red Blood Count 4.82 10^6/uL (3.85-5.65); Red Cell Distribution Width 13.9 % (12.1-15.1); White Blood Count 9.84 10^3/uL (3.29-11.43)
[2023-04-02 21:11] LABS: Albumin Level 4.6 g/dL (3.5-5.2); Alkaline Phosphatase 137 U/L (35-105); Anion Gap 14.2 (5-19); Aspartate Amino Transferase 27 U/L (0-32); Blood Urea Nitrogen 13 mg/dL (8-23); Calcium 9.9 mg/dL (8.5-10.5); Carbon Dioxide 25 mmol/L (22-29); Chloride 105 mmol/L (98-107); Creatinine Clr Calc Pharmacy 65.9635; Globulin 3.3 g/dL (1.3-4.6); Glucose 129 mg/dL (65-115); Lipase 26 U/L (13-60); Osmolality Calculated 292 mOsm/kg (285-295); Potassium 4.2 mmol/L (3.5-5.1); Sodium 140 mmol/L (136-145); Total Bilirubin 0.3 mg/dL (0.15-1.2); Total Protein 7.9 g/dL (6.6-8.7)
[2023-04-02 21:14] LABS: Alanine Aminotransferase 16 U/L (0-33)
--- NOTE | 2023-04-02 21:45 | CTR_ITS ---
PROCEDURE INFORMATION: Exam: CT Head Without Contrast Exam date and time: 04/02/2023 10:32 PM Age: 72 years old Clinical indication: Patient HX: Dizziness with n/v TECHNIQUE: Imaging protocol: Computed tomography of the head without contrast. Radiation optimization: All CT scans at this facility use at least one of these dose optimization techniques: automated exposure control; mA and/or kV adjustment per patient size (includes targeted exams where dose is matched to clinical indication); or iterative reconstruction. REPORTING DATA: Count of CT and Cardiac NM exams in prior 12 months: This patient has received [address] and 0 known cardiac nuclear medicine studies in the 12 months prior to the current study. COMPARISON: MR head wo/w con [id number] 11/26/2022 5:02 PM RADIATION DOSE METRICS: Total DLP (mGy-cm): 1116.18 FINDINGS: Brain: No acute intracranial hemorrhage, abnormal extra-axial fluid collection, mass effect, or midline shift. Moderate periventricular and subcortical white matter hypodensities compatible with changes of moderate burden chronic small-vessel disease. Cerebral ventricles: The ventricular system is within normal limits of variation for the patient's age. Paranasal sinuses: Visualized paranasal sinuses are grossly unremarkable. No air fluid levels. Mastoid air cells: Visualized mastoid air cells are well aerated. Bones/joints: No acute fracture. Soft tissues: Grossly unremarkable. Vasculature: Atheromatous changes are seen within the bilateral carotid siphons and V4 segment of the right vertebral artery. CT/CT head wo con* [id number] IMPRESSION: 1. No acute intracranial findings. 2. Other chronic/incidental findings as described above.
--- NOTE | 2023-04-02 21:47 | CTR_ITS ---
PROCEDURE INFORMATION: Exam: CTA Head With Contrast, Arteriography Exam date and time: 04/02/2023 10:36 PM Age: 72 years old Clinical indication: Dizziness and giddiness; Patient HX: Dizziness with n/v TECHNIQUE: Imaging protocol: Computed tomographic angiography of the head with contrast. Exam focused on the arteries. 3D rendering (Not supervised by radiologist): MIP and/or 3D reconstructed images were created by the technologist. Radiation optimization: All CT scans at this facility use at least one of these dose optimization techniques: automated exposure control; mA and/or kV adjustment per patient size (includes targeted exams where dose is matched to clinical indication); or iterative reconstruction. Contrast material: OMNI 350; Contrast volume: 100 ml; Contrast route: INTRAVENOUS (IV); REPORTING DATA: Count of CT and Cardiac NM exams in prior 12 months: This patient has received [address] and 0 known cardiac nuclear medicine studies in the 12 months prior to the current study. COMPARISON: CT head wo con* [id number] 04/02/2023 10:32 PM RADIATION DOSE METRICS: Total DLP (mGy-cm): 479.12 FINDINGS: ANTERIOR CIRCULATION: Right internal carotid artery: Intracranial segment is patent with no significant stenosis. No aneurysm. Right middle cerebral artery: No occlusion or significant stenosis. No aneurysm. Right anterior cerebral artery: No occlusion or significant stenosis. No aneurysm. Left internal carotid artery: Intracranial segment is patent with no significant stenosis. No aneurysm. Left middle cerebral artery: No occlusion or significant stenosis. No aneurysm. Left anterior cerebral artery: No occlusion or significant stenosis. No aneurysm. POSTERIOR CIRCULATION: Right vertebral artery: No occlusion or significant stenosis. No aneurysm. Left vertebral artery: No occlusion or significant stenosis. No aneurysm. Basilar artery: No occlusion or significant stenosis. No aneurysm. Right posterior cerebral artery: origin of the right posterior cerebral artery. No occlusion or significant stenosis. No aneurysm. Left posterior cerebral artery: No occlusion or significant stenosis. No aneurysm. Brain: No acute intracranial hemorrhage, abnormal extra-axial fluid collection, mass effect, or midline shift. Moderate periventricular and subcortical white matter hypodensities compatible with changes of moderate burden chronic small-vessel disease. Cerebral ventricles: No ventriculomegaly. Bones/joints: No acute fracture. Moderate degenerative changes of the right temporomandibular joint. [id number] cervical spondylosis. Soft tissues: Grossly unremarkable. PROCEDURE INFORMATION: Exam: CTA Neck With Contrast Exam date and time: 04/02/2023 10:36 PM Age: 72 years old Clinical indication: Dizziness and giddiness; Patient HX: Dizziness with n/v TECHNIQUE: Imaging protocol: Computed tomographic angiography of the neck with contrast. 3D rendering (Not supervised by radiologist): MIP and/or 3D reconstructed images were created by the technologist. Radiation optimization: All CT scans at this facility use at least one of these dose optimization techniques: automated exposure control; mA and/or kV adjustment per patient size (includes targeted exams where dose is matched to clinical indication); or iterative reconstruction. Contrast material: OMNI 350; Contrast volume: 100 ml; Contrast route: INTRAVENOUS (IV); REPORTING DATA: Count of CT and Cardiac NM exams in prior 12 months: This patient has received [address] and 0 known cardiac nuclear medicine studies in the 12 months prior to the current study. COMPARISON: MR cervical spin wo con* [id number] 07/04/2020 1:34 PM RADIATION DOSE METRICS: Total DLP (mGy-cm): 479.12 FINDINGS: Right common carotid artery: No stenosis. No dissection or occlusion. Right internal carotid artery: No stenosis of the extracranial segment. No dissection or occlusion. Right external carotid artery: No occlusion or stenosis of the origin. Left common carotid artery: No stenosis. No dissection or occlusion. Left internal carotid artery: No stenosis of the extracranial segment. No dissection or occlusion. Left external carotid artery: No occlusion or stenosis of the origin. Right vertebral artery: No stenosis. No dissection or occlusion. Left vertebral artery: No stenosis. No dissection or occlusion. Soft tissues: Grossly unremarkable. Bones/joints: No acute fracture. CT/CT angio headneck* [id number] IMPRESSION: 1. No large vessel stenosis, dissection, occlusion, or aneurysm. 2. origin of the right posterior cerebral artery. 3. Moderate periventricular and subcortical white matter hypodensities compatible with changes of moderate burden chronic small-vessel disease. 4. Moderate degenerative changes of the right temporomandibular joint. IMPRESSION: 1. No stenosis, occlusion, dissection, or aneurysm. 2. There are few prominent and enlarged mediastinal lymph nodes measuring up to 11 mm in short axis. Findings may represent reactive adenopathy however other etiologies cannot be excluded. Correlate and follow-up as clinically indicated. REFERENCES: NASCET CRITERIA. The degree of stenosis in the cervical segment of the internal carotid artery is based on NASCET criteria. Normal is no stenosis. Mild is less than 50% stenosis. Moderate is 50-69% stenosis. Severe is 70% to 99% stenosis. Total occlusion is no detectable patent lumen.
--- NOTE | 2023-04-02 21:48 | ED_ITS ---
HPI - Nausea/Vomiting/Diarrhea General: Chief complaint: Nausea/Vomiting/Diarrhea Stated complaint: n/v Time Seen by Provider: 04/02/23 21:31 Source: patient Mode of arrival: ambulatory Limitations: no limitations History of Present Illness: 72-year-old female states over the last week she has been having some dizziness she states that she is diagnosed UTI and she has a symptoms before when she had a UTI she states today it gotten worse and started having some nausea and vomiting she states that she feels improved currently and the dizziness has improved. She states that she just switched to a new antibiotic today by urgent care. She denies any abdominal pain denies any fevers. Associated nausea: Yes Associated symtoms: Reports dizziness and nausea; Denies chest pain or headache(s) Review of Systems Const: Denies: fever(s) or chills Eyes: Denies: blurry vision or eye discomfort ENMT: Denies: throat pain or dental pain Card: Denies: chest pain Resp: Denies: dyspnea GI: Reports: nausea and vomiting; Denies: abdominal pain or diarrhea Musc: Denies: neck pain or back pain Skin/Breast: Denies: rash Neuro: Reports: dizziness; Denies: headache(s) PFSH ED PFSH: Medical History Hypertension Social History Smoking and tobacco status: never smoked Alcohol intake: never Substance/Drug Use: never Physical Exam Const: COMMON NORMALS: no acute distress, patient oriented x3 and healthy appearing HENMT: COMMON NORMALS: normocephalic and atraumatic HEAD & SCALP: normocephalic and atraumatic Eye: COMMON NORMALS: Equal, round and reactive pupils present and EOMs intact bilaterally PUPIL: Yes Equal, round and reactive pupils present Neck/C-Spine: COMMON NORMALS: full ROM and supple Chest: COMMONS NORMALS: normal inspection of the chest Resp: COMMON NORMALS: normal respiratory effort, No retractions, No use of accessory muscles and clear to auscultation bilaterally AUSCULTATION: clear to auscultation bilaterally Cardio: COMMON NORMALS: regular rate, regular rhythm and No murmurs present (Cardio) RATE: regular rate RHYTHM: regular rhythm GI: COMMON NORMALS: Normal to inspection, nondistended, normoactive bowel sounds present, Soft to palpation, non-tender and no masses PALPATION: Yes Soft to palpation Extremity: COMMON NORMALS: normal to inspection and full ROM Neuro: COMMON NORMALS: patient oriented x3, moves all extremities and no focal motor deficits Psych: COMMON NORMALS: mental status grossly normal, Normal thought process present and cooperative THOUGHT PROCESS: Normal thought process present Skin: COMMON NORMALS: no rashes or lesions noted and no wounds GENERAL SKIN EXAM: no rashes or lesions noted Course Vital Signs: Vital signs: Vital Signs Temperature 97.5 F L 04/02/23 18:21 Pulse Rate 67 04/02/23 18:21 Respiratory Rate 18 04/02/23 18:21 Blood Pressure 158/93 04/02/23 18:21 Pulse Oximetry 96 04/02/23 18:21 Oxygen Delivery Me thod Room Air 04/02/23 18:21 MDM - Nausea/Vomiting/Diarrhea Medical Decision Making Patient presents here with vertigo has been on for a week and much worse today her onset was a week ago her vertigo is worsened here even after Antivert she is not able to ambulate due to the vertigo CT angio here is normal she is not a tPA candidate as she is out of the window. spoke to hospitalist and will admit for her severe vertigo. Medical Records I reviewed the patient's medical records. Lab Data I reviewed the patient's lab results. 04/02/23 20:07 04/02/23 20:[address] 04/02/23 21:45 IMPRESSION: 1. No acute intracranial findings. 2. Other chronic/incidental findings as described above. Head/Neck CTA 04/02/23 21:47 IMPRESSION: 1. No large vessel stenosis, dissection, occlusion, or aneurysm. 2. origin of the right posterior cerebral artery. 3. Moderate periventricular and subcortical white matter hypodensities compatible with changes of moderate burden chronic small-vessel disease. 4. Moderate degenerative changes of the right temporomandibular joint. IMPRESSION: 1. No stenosis, occlusion, dissection, or aneurysm. 2. There are few prominent and enlarged mediastinal lymph nodes measuring up to 11 mm in short axis. Findings may represent reactive adenopathy however other etiologies cannot be excluded. Correlate and follow-up as clinically indicated. REFERENCES: NASCET CRITERIA. The degree of stenosis in the cervical segment of the internal carotid artery is based on NASCET criteria. Normal is no stenosis. Mild is less than 50% stenosis. Moderate is 50-69% stenosis. Severe is 70% to 99% stenosis. Total occlusion is no detectable patent lumen. Laboratory Results WBC 9.84 10^3/uL (3.29-11.43) 04/02/23 20:07 RBC 4.82 10^6/uL (3.85-5.65) 04/02/23 20:07 Hgb 13.50 g/dL (11.27-16.99) 04/02/23 20:07 Hct 43.2 % (36-47) 04/02/23 20:07 MCV 89.6 fl (85-98) 04/02/23 20:07 MCH 28.0 pg (27-33) 04/02/23 20:07 MCHC 31.3 g/dL (30-55) 04/02/23 20:07 RDW 13.9 % (12.1-15.1) 04/02/23 20:07 Plt Count 219 10^3/cmm (157-399) 04/02/23 20:07 MPV 11.2 fL (7.4-10.4) H 04/02/23 20:07 Neut % (Auto) 76.5 % 04/02/23 20:07 Lymph % (Auto) 15.8 % 04/02/23 20:07 [place] % (Auto) 4.3 % 04/02/23 20:07 Eos % (Auto) 2.4 % 04/02/23 20:07 Baso % (Auto) 0.5 % 04/02/23 20:07 Neut # (Auto) 7.53 10^3/uL (1.8-7.7) 04/02/23 20:07 Lymph # (Auto) 1.6 10^3/uL (0.8-4.8) 04/02/23 20:07 [place] # (Auto) 0.4 10^3/uL (0.2-0.9) 04/02/23 20:07 Eos # (Auto) 0.2 10^3/uL (0.0-0.8) 04/02/23 20:07 Baso # (Auto) 0.1 10^3/uL (0.0-0.1) 04/02/23 20:07 Nucleated RBC % (auto) 0 % 04/02/23 20:07 Nucleated RBCs # 0.0 /100WBC 04/02/23 20:07 Sodium 140 mmol/L (136-145) 04/02/23 20:07 Potassium 4.2 mmol/L (3.5-5.1) 04/02/23 20:07 Chloride 105 mmol/L (98-107) 04/02/23 20:07 Carbon Dioxide 25 mmol/L (22-29) 04/02/23 20:07 Anion Gap 14.2 (5-19) 04/02/23 20:07 BUN 13 mg/dL (8-23) 04/02/23 20:07 Creatinine 0.8 mg/dL (0.5-0.9) 04/02/23 20:07 GFR Calculation Not Reportable 04/02/23 20:07 Glucose 129 mg/dL (65-115) H 04/02/23 20:07 Calculated Osmolality 292 mOsm/kg (285-295) 04/02/23 20:07 Calcium 9.9 mg/dL (8.5-10.5) 04/02/23 20:07 Total Bilirubin 0.3 mg/dL (0.15-1.2) 04/02/23 20:07 AST 27 U/L (0-32) 04/02/23 20:07 ALT 16 U/L (0-33) 04/02/23 20:07 Alkaline Phosphatase 137 U/L (35-105) H 04/02/23 20:07 Total Protein 7.9 g/dL (6.6-8.7) 04/02/23 20:07 Albumin 4.6 g/dL (3.5-5.2) 04/02/23 20:07 Globulin 3.3 g/dL (1.3-4.6) 04/02/23 20:07 Lipase 26 U/L (13-60) 04/02/23 20:07 Urine Color Yellow (Yellow) 04/02/23 22:51 Urine Appearance Clear (CLEAR) 04/02/23 22:51 Urine pH 6 (5-7) 04/02/23 22:51 Ur Specific [place] 1.015 (1.005-1.030) 04/02/23 22:51 Urine Protein Neg (Negative) 04/02/23 22:51 Urine Glucose (UA) Norm (Normal) 04/02/23 22:51 Urine Ketones Negative (Negative) 04/02/23 22:51 Urine Blood Neg (Negative) 04/02/23 22:51 Urine Nitrate Negative (Negative) 04/02/23 22:51 Urine Bilirubin Neg (Negative) 04/02/23 22:51 Urine Urobilinogen Norm mg/dL (Negative) 04/02/23 22:51 Ur Leukocyte Esterase Trace (Negative) H 04/02/23 22:51 Urine RBC None /hpf (0-2) 04/02/23 22:51 Urine WBC 5-10 /hpf (0-5) H 04/02/23 22:51 Ur Squamous Epith Cells 5-10 /hpf (0-5) H 04/02/23 22:51 Amorphous Sediment Not Reportable 04/02/23 22:51 Urine Bacteria Trace /hpf (NONE) 04/02/23 22:51 Urine Mucus Trace /hpf 04/02/23 22:51 Urine Yeast Trace /hpf 04/02/23 22:51 Discharge Plan Discharge Admit Provider: Estiven Sevilla Clinical Impression: Vertigo, Vomiting Condition: Stable Coding Level of Care Code ED Brake Reliner for Meenakshi Paige
[2023-04-02] MEDS: iohexol 350 mg/mL 500 mL Btl (per mL) IV (22:36)
[2023-04-02] MEDS: hyDRALAzine 20 mg/mL INJ 1 mL 10 MG IVP (22:55)
[2023-04-02] MEDS: meclizine 25 mg tablet 50 MG PO (22:57)
[2023-04-02] MEDS: ondansetron 2 mg/ML SDV 2 mL 4 MG IVP (22:57)
[2023-04-02] MEDS: sodium chloride 0.9% 1,000 ML 999 ML IV (22:57)
[2023-04-02 23:08] LABS: Add Urine Microscopic? YES; Bacteria Urine TRACE /hpf; Bilirubin Urine Neg (Negative); Blood Urine Neg (Negative); Glucose Urine UA Norm (Normal); Ketones Urine Negative (Negative); Leukocyte Esterase Urine Trace (Negative); Mucus Urine TRACE /hpf; Nitrate Urine Negative (Negative); Protein Urine Neg (Negative); Specific Gravity, Urine 1.015 (1.005-1.030); Urine Appearance Clear (CLEAR); Urine Color Yellow (Yellow); Urobilinogen Urine Norm (Negative); pH Urine 6 (5-7)
[2023-04-02 23:10] LABS: Add Urine Culture? No
[2023-04-03] VITALS: BP 148/82; PULSE 89; RESP 17; TEMP 36.4; O2SAT 92
[2023-04-03] MEDS: ondansetron 2 mg/ML SDV 2 mL 4 MG IVP (00:09)
[2023-04-03] MEDS: diazePAM 5 mg Tablet PO (00:09)
[2023-04-03 00:16] VITALS: BP 165/85; PULSE 87; RESP 18; O2SAT 94
--- NOTE | 2023-04-03 00:20 | PC.NURSE ---
Report called to KELY Crane on [place].
--- NOTE | 2023-04-03 01:37 | MR_ITS ---
WS: [id number] MRI BRAIN WITHOUT CONTRAST HISTORY: Dizziness with nausea and vomiting. COMPARISON: 11/26/[address] head 04/02/2023 TECHNIQUE: Diffusion imaging, multiplanar T1, T2 and FLAIR imaging obtained. No evidence for acute infarct or hemorrhage. [place]-white matter differentiation is normal. Moderate atrophy. Moderate T2 and FLAIR signal hyperintensities throughout the white matter. Confluen t white matter disease surrounding the ventricles and more scattered lesions in the subcortical white matter. No hemorrhage. Ventricles and extra-axial spaces are normal. Small amount of ischemic change in the polly bilaterally. Dural venous sinuses and [place] demonstrate no abnormality on this unenhanced studies. Paranasal sinuses: Clear. Mastoid air cells: Normal. Resolved air-fluid level RIGHT maxillary sinus Calvarium and scalp: Intact. IMPRESSION: 1. No acute hemorrhage. Normal diffusion imaging. 2. Moderate atrophy. 3. Moderate to severe small vessel ischemic changes in the supratentorial white matter and moderate in the polly. Similar to the prior MRI of 11/26/2022.
--- NOTE | 2023-04-03 01:39 | PM.HP ---
Providers/Chief Complaint Admitting Physician: Estiven Sevilla Primary Care Provider: Solo Sanchez MD Chief Complaint: n/v History of Present Illness 72-year-old lady has been having episodes of recurrent vertigo, room spinning [id number]. She thought maybe was related to urinary tract infection. Has been recently treated for 1 with cefdinir, but since another antibiotic was added recently she is not sure of the name. In ER some persistent vertigo despite meclizine, Valium. Hypertensive, blood pressure as high as 165/85. History of hypertension, says that a while back her antihypertensives were discontinued by primary provider due to concern for adverse effect. Review of Systems Const: Denies: fever(s), chills, body aches or malaise Eyes: Denies: change in vision ENMT: Denies: throat pain Card: Denies: chest pain, edema, pre-syncope or dyspnea on exertion Resp: Denies: dyspnea, productive cough, change in phlegm color or hemoptysis GI: Denies: abdominal pain, nausea, vomiting, diarrhea, constipation, hematochezia or melena : Denies: flank pain, urinary frequency or hematuria Musc: Denies: back pain, joint swelling or joint redness Skin/Breast: Denies: rash or new lesions Neuro: Reports: dizziness; Denies: headache(s), numbness in extremities, weakness in extremities, confusion or seizure-like activity Medications/Allergies Home Medications Medication Instructions Recorded Confirmed Last Taken Type omeprazole 20 mg capsule,delayed See Rx Instructions .Route 11/01/22 04/02/23 Unknown Rx release .COMPLEX #90 caps aspirin 81 mg tablet,delayed 81 mg PO DAILY #30 tabs 11/06/22 04/02/23 Unknown Rx release levothyroxine 75 mcg tablet See Rx Instructions .Route 03/11/23 04/02/23 Unknown Rx .COMPLEX #90 tabs potassium chloride 10 mEq See Rx Instructions .Route 03/11/23 04/02/23 Unknown Rx capsule,extended release .COMPLEX #90 caps cefdinir 300 mg capsule 300 mg PO Q12H 10 days #20 caps 03/22/23 04/02/23 Unknown Rx fosfomycin tromethamine 3 gram 1 packet PO Q3D 3 doses #1 ea 08/23/23 08/23/23 Unknown Rx oral packet Allergies Allergy/AdvReac Type Severity Reaction Status Date / Time ciprofloxacin Allergy ADR/ALGY-Pa Verified 04/02/23 18:26 lpitations metformin Allergy ADR-Vomitin Verified 04/02/23 18:26 g sulfamethoxazole Allergy ALGY-Hives Verified 04/02/23 18:26 [From Bactrim] trimethoprim [From Bactrim] Allergy ALGY-Hives Verified 04/02/23 18:26 hydrochlorothiazide AdvReac Intermediate hyponatremi Verified 04/02/23 18:26 a PFSH Acute PFSH: Medical History (Updated 04/03/23 @ 02:22 by Estiven Sevilla MD) Abnormal mammogram of right breast Hypertension Hypothalamic hypothyroidism ALANA (obstructive sleep apnea) Social History Smoking and tobacco status: never smoked Alcohol intake: never Substance/Drug Use: never Vitals/I&O/Wt Last Vital Signs Temp 97.6 F 04/03/23 00:00 Pulse 87 04/03/23 00:16 Resp 18 04/03/23 00:16 BP 165/85 04/03/23 00:16 Pulse Ox 94 04/03/23 00:16 O2 Del Method Room Air 04/03/23 00:00 04/02/23 04/02/23 04/03/23 14:59 22:59 06:59 Intake Total 1000 / 1000 Balance 1000 / 1000 Weight last 48 hrs Weight 90.718 kg Physical Exam Narrative: Accompanied by her . Const: COMMON NORMALS: patient oriented x3 and alert GENERAL APPEARANCE: cooperative ORIENTATION/CONSCIOUSNESS: Yes awake HENMT: COMMON NORMALS: oropharynx normal Neck/C-Spine: COMMON NORMALS: no JVD Resp: COMMON NORMALS: normal respiratory effort and clear to auscultation bilaterally AUSCULTATION: clear to auscultation bilaterally Cardio: COMMON NORMALS: no JVD, regular rhythm, S1 normal heart sound present, S2 normal heart sound present and No murmurs present (Cardio) RHYTHM: regular rhythm HEART SOUNDS: S1 normal heart sound present and S2 normal heart sound present GI: COMMON NORMALS: Normal to inspection, nondistended, normoactive bowel sounds present, Soft to palpation and non-tender PALPATION: Yes Soft to palpation Extremity: COMMON NORMALS: no joint enlargement and no pedal edema Neuro: COMMON NORMALS: patient oriented x3 and moves all extremities SENSORIUM/ORIENTATION: Yes alert OTHER: Alert, no trouble following directions. No facial droop. No trouble tracking. Visual tsang full to confrontation. FNF WNL. No upper or lower extremity drift. Sensory exam symmetrical. No sensory extinction. Skin: COMMON NORMALS: no rashes or lesions noted GENERAL SKIN EXAM: no rashes or lesions noted Data 04/02/23 20:07 04/02/23 20:07 A&P Assessment and plan (1) Vertigo: Concern for possible CVA noted in ER. Outside the window for tPA. CT head with moderate white matter hypodensities compatible with moderate chronic small vessel disease. Risk factors for stroke include hypertension, obesity. Assessment requested with MRI brain. Check lipid profile. Otherwise no artery complaints, no ear pain, diminished hearing, drainage or tinnitus. She denies any triggers for the vertigo, denies it being triggered by turning her head, leaning, etc. We will request PT evaluation. Consideration of possible BPPV. Otherwise no signs of sepsis. Afebrile. WBC noted normal. Otherwise unremarkable chemistry with normal electrolytes, unremarkable renal parameters. Noted mild elevation of alk phos. For now we will hold off antihypertensives. Monitor blood pressure. Discussed with her . Discussed with ER physician, ER documentation reviewed. Plan Recent UTI: UA noted with 5 and 10 WBC. 5-10 SEC. Continue cefdinir Hypothyroidism continue levothyroxine. HTN: For now permissive hypertension in case of possible CVA, however, monitor blood pressures, long-term may benefit from optimization of blood pressure control. Reports recently had been taken off of her antihypertensive. Mild elevation of alk phos: Follow-up with PCP. Requested to list home medications, please reconcile once available. Attestations Medical Necessity Statement*: Place in observation for additional assessment of persistent vertigo, assessment for possible posterior circulation CVA in a lady with risk factors. Diagnoses Vertigo [id number]
[2023-04-03 03:33] VITALS: BP 137/74; PULSE 94; RESP 16; TEMP 36.4; O2SAT 90
[2023-04-03 05:30] LABS: Cholesterol 186 mg/dL (0-200); HDL Cholesterol 69 mg/dL (60-100); LDL Cholesterol Calculated 101 mg/dL (50-129); LDL HDL Ratio 1.46 RATIO (0.00-3.22); Triglycerides 80 mg/dL (0-150)
[2023-04-03] MEDS: levothyroxine 75 mcg Tablet PO (05:35)
[2023-04-03 07:12] VITALS: BP 145/81; PULSE 84; RESP 16; TEMP 36.6; O2SAT 93
[2023-04-03] MEDS: cefdinir 300 MG CAPSULE PO (08:00)
[2023-04-03] MEDS: acetaminophen 325 mg Tablet 650 MG PO (08:00)
[2023-04-03] MEDS: aspirin 81 mg EC Tablet PO (08:01)
--- NOTE | 2023-04-03 09:49 | PM.DCS ---
Discharge Providers Date of Admission: 04/02/23 23:46 Date of Discharge: April 03, 2023 Attending Provider at Admission: Estiven Sevilla Attending Provider at Discharge: Jesse Escoto MD Primary Care Provider: Solo Sanchez MD Diagnoses at Discharge Discharge Diagnosis (1) Vertigo: Status: Acute Reason for Visit Reason for Visit: n/v Hospital Course Hospital Course Nahed is a 72-year-old white female who presented with dizziness, vertigo, and vomiting. In the emergency department blood pressure was slightly high. She was recently diagnosed with a UTI, and given cefdinir. She was wondering if the UTI could have been causing an issue. There was concern after evaluation in the ER that MRI would be needed to rule out CVA. CTA, CT scan were not revealing. She was placed under observation and an MRI was performed the day of discharge the demonstrated no CVA. Moderate to the severe small vessel changes similar to prior MRI were noted, atrophy was noted. CTA did not demonstrate any flow-limiting stenosis. Patient and family was informed regarding some lymph nodes that was slightly enlarged in the mediastinum that her primary care provider could follow-up as an outpatient. By time of discharge she had no longer had any dizziness, or nausea. She was ambulating back and forth to the bathroom without vertigo. She was given an opportunity to ask questions, and agreed with the plan. Physical Exam Narrative: General exam no distress Neck supple Cardiovascular regular rate and rhythm without murmur Lungs clear Abdomen is soft Extremities no cyanosis clubbing or edema Neuro no obvious focal deficits Discharge Data Studies Completed and Pending Completed Studies During Hospitalization Category Date Time Status CT head wo con* [id number] Stat Cat Scan 04/02/23 21:45 Completed CTA head neck [CT angio headneck* [id number]] Stat Cat Scan 04/02/23 21:47 Completed MR head wo con* [id number] Routine MRI 04/03/23 01:37 Completed Radiology Impressions Head CT 04/02/23 21:45 IMPRESSION: 1. No acute intracranial findings. 2. Other chronic/incidental findings as described above. Head/Neck CTA 04/02/23 21:47 IMPRESSION: 1. No large vessel stenosis, dissection, occlusion, or aneurysm. 2. origin of the right posterior cerebral artery. 3. Moderate periventricular and subcortical white matter hypodensities compatible with changes of moderate burden chronic small-vessel disease. 4. Moderate degenerative changes of the right temporomandibular joint. IMPRESSION: 1. No stenosis, occlusion, dissection, or aneurysm. 2. There are few prominent and enlarged mediastinal lymph nodes measuring up to 11 mm in short axis. Findings may represent reactive adenopathy however other etiologies cannot be excluded. Correlate and follow-up as clinically indicated. REFERENCES: NASCET CRITERIA. The degree of stenosis in the cervical segment of the internal carotid artery is based on NASCET criteria. Normal is no stenosis. Mild is less than 50% stenosis. Moderate is 50-69% stenosis. Severe is 70% to 99% stenosis. Total occlusion is no detectable patent lumen. Laboratory Results WBC 9.84 10^3/uL (3.29-11.43) 04/02/23 20:07 RBC 4.82 10^6/uL (3.85-5.65) 04/02/23 20:07 Hgb 13.50 g/dL (11.27-16.99) 04/02/23 20:07 Hct 43.2 % (36-47) 04/02/23 20:07 MCV 89.6 fl (85-98) 04/02/23 20:07 MCH 28.0 pg (27-33) 04/02/23 20:07 MCHC 31.3 g/dL (30-55) 04/02/23 20:07 RDW 13.9 % (12.1-15.1) 04/02/23 20:07 Plt Count 219 10^3/cmm (157-399) 04/02/23 20:07 MPV 11.2 fL (7.4-10.4) H 04/02/23 20:07 Neut % (Auto) 76.5 % 04/02/23 20:07 Lymph % (Auto) 15.8 % 04/02/23 20:07 Ray % (Auto) 4.3 % 04/02/23 20:07 Eos % (Auto) 2.4 % 04/02/23 20:07 Baso % (Auto) 0.5 % 04/02/23 20:07 Neut # (Auto) 7.53 10^3/uL (1.8-7.7) 04/02/23 20:07 Lymph # (Auto) 1.6 10^3/uL (0.8-4.8) 04/02/23 20:07 Ray # (Auto) 0.4 10^3/uL (0.2-0.9) 04/02/23 20:07 Eos # (Auto) 0.2 10^3/uL (0.0-0.8) 04/02/23 20:07 Baso # (Auto) 0.1 10^3/uL (0.0-0.1) 04/02/23 20:07 Nucleated RBC % (auto) 0 % 04/02/23 20:07 Nucleated RBCs # 0.0 /100WBC 04/02/23 20:07 Sodium 140 mmol/L (136-145) 04/02/23 20:07 Potassium 4.2 mmol/L (3.5-5.1) 04/02/23 20:07 Chloride 105 mmol/L (98-107) 04/02/23 20:07 Carbon Dioxide 25 mmol/L (22-29) 04/02/23 20:07 Anion Gap 14.2 (5-19) 04/02/23 20:07 BUN 13 mg/dL (8-23) 04/02/23 20:07 Creatinine 0.8 mg/dL (0.5-0.9) 04/02/23 20:07 GFR Calculation Not Reportable 04/02/23 20:07 Glucose 129 mg/dL (65-115) H 04/02/23 20:07 Calculated Osmolality 292 mOsm/kg (285-295) 04/02/23 20:07 Calcium 9.9 mg/dL (8.5-10.5) 04/02/23 20:07 Total Bilirubin 0.3 mg/dL (0.15-1.2) 04/02/23 20:07 AST 27 U/L (0-32) 04/02/23 20:07 ALT 16 U/L (0-33) 04/02/23 20:07 Alkaline Phosphatase 137 U/L (35-105) H 04/02/23 20:07 Total Protein 7.9 g/dL (6.6-8.7) 04/02/23 20:07 Albumin 4.6 g/dL (3.5-5.2) 04/02/23 20:07 Globulin 3.3 g/dL (1.3-4.6) 04/02/23 20:07 Triglycerides 80 mg/dL (0-150) 04/03/23 04:22 Cholesterol 186 mg/dL (0-200) 04/03/23 04:22 LDL Cholesterol, Calc 101 mg/dL (50-129) 04/03/23 04:22 HDL Cholesterol 69 mg/dL (60-100) 04/03/23 04:22 LDL/HDL Ratio 1.46 RATIO (0.00-3.22) 04/03/23 04:22 Cholesterol/HDL Ratio 2.70 mg/dL (0.0-4.40) 04/03/23 04:22 Lipase 26 U/L (13-60) 04/02/23 20:07 Urine Color Yellow (Yellow) 04/02/23 22:51 Urine Appearance Clear (CLEAR) 04/02/23 22:51 Urine pH 6 (5-7) 04/02/23 22:51 Ur Specific [place] 1.015 (1.005-1.030) 04/02/23 22:51 Urine Protein Neg (Negative) 04/02/23 22:51 Urine Glucose (UA) Norm (Normal) 04/02/23 22:51 Urine Ketones Negative (Negative) 04/02/23 22:51 Urine Blood Neg (Negative) 04/02/23 22:51 Urine Nitrate Negative (Negative) 04/02/23 22:51 Urine Bilirubin Neg (Negative) 04/02/23 22:51 Urine Urobilinogen Norm mg/dL (Negative) 04/02/23 22:51 Ur Leukocyte Esterase Trace (Negative) H 04/02/23 22:51 Urine RBC None /hpf (0-2) 04/02/23 22:51 Urine WBC 5-10 /hpf (0-5) H 04/02/23 22:51 Ur Squamous Epith Cells 5-10 /hpf (0-5) H 04/02/23 22:51 Amorphous Sediment Not Reportable 04/02/23 22:51 Urine Bacteria Trace /hpf (NONE) 04/02/23 22:51 Urine Mucus Trace /hpf 04/02/23 22:51 Urine Yeast Trace /hpf 04/02/23 22:51 Vitals Last Vital Signs Temp 97.9 F 04/03/23 07:12 Pulse 84 04/03/23 07:12 Resp 16 04/03/23 07:12 BP 145/81 04/03/23 07:12 Pulse Ox 93 04/03/23 07:12 O2 Del Method Room Air 04/03/23 07:12 Discharge Plan Discharge Patient Disposition: Home Condition: Stable Prescriptions: Continued fosfomycin tromethamine 3 gram packet 1 packet PO Q3D Qty: 1 0RF aspirin 81 mg tablet,delayed release (DR/EC) 81 mg PO DAILY Qty: 30 0RF potassium chloride 10 mEq capsule, extended release 10 meq PO BEDTIME levothyroxine 75 mcg tablet 75 mcg PO QAM omeprazole 20 mg capsule,delayed release(DR/EC) 20 mg PO BEDTIME Discharge Orders: Discharge Order (Routine); Ordered 04/03/23 Ordered By: Jesse Escoto Referrals: Solo Sanchez MD [Primary Care Provider] - 4-7 days Discharge Diet: Usual diet Discharge Activity: Increase activity as tolerated Patient Instructions: Opioid Safety Activity Restrictions/Additional Instructions: May finish your course of cefdinir he was started as an outpatient. Follow-up with Dr. Rojas for hospital follow-up, and to discuss slightly enlarged lymph nodes in the mediastinum. He will decide whether these need repeat imaging in the future Return for any concerns Discharge Attestations Time Spent in Discharge Care*: greater than 30 min Quality Metrics Clinical Quality Measures [ No reported AMI, CVA or VTE this stay] Coding Level of Care Code 15395 Total time (in minutes) for Discharge: 39 Diagnoses Vertigo R42
--- NOTE | 2023-04-03 10:24 | PC.CHAP ---
Pastoral Care Encounter/Spiritual Assessment Type of Contact [] Declined out patient therapist visit [] Patient/Family/Request visit [] Outpatient visit [] Follow-up visit [] Physician referral [] Code/Alert [x] Routine visit [] Staff referral [] Actively dying [] Patient sleeping [] Family support [] [] Out of room [] Palliative care [] [x] Receiving care in room [] Pre-surgical visit [] Trauma [] Long length of stay [] ICU visit [] Other: Relational/Emotional Strength [x] Patient feels connected with others/family/visitors/staff [] Distress [] Loneliness/isolation [] Abandonment Spirituality of Patient [x] Person of Lyn [] Attends Voodoo of their Lyn [x] Believes in Prayer [] Reads Bible or Confucianism materials [] There are Spiritual issues to be addressed Covering [employer] 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 Supervisor Interventions [x] Prayer [x] Active listening [x] Non-anxious presence [x] Spiritual/emotional support [] Crisis/trauma care [x] Spiritual counseling [] Bereavement support [] Provided bereavement packet [] Provided Bible/devotional materials [] Provided toy/stuffed animal, coloring book to patient or family member [] Provided Communion [] Anointing/[place] [] Salvation [x] Completed spiritual assessment [] Other: Impact on Illness or Injury [] Angry [] Fearful [] Anxious [] Often cries [] Exhaustion [] Unable to work [] Unable to attend hoahaoism [] Unable to walk/stand [] Unable to read [] Unable to drive [] Unable to eat/drink [] Unable to sleep [] Unable to be with family [] Patient intubated [] Other: Summary not sure about her health at this time has good attitude well go home Time spent with patient 10 mins
[2023-04-03 11:06] VITALS: BP 145/81; PULSE 84; RESP 16; TEMP 36.6; O2SAT 93
== END 2023-04-03 11:07 | disposition home or self-care (01) ==
LOC: ER 22:04 → MEDSURG 23:46
PROVIDERS: Admitting Provider Internal Medicine; Emergency Provider Emergency Medicine; PCP Family Medicine; Visit Provider Internal Medicine
DX: R42 Dizziness and giddiness (principal); I10 Essential (primary) hypertension; Z79.82 Long term (current) use of aspirin
CPT/HCPCS: 36415; 70450; 70496; 70498; 70551; 80053; 80061; 81000; 81001; 83690; 85025; 87086; 96361; 96374; 96375; 96376; 99285; G0378; J0360; J2405; J7030; J8597; Q9967

== ENCOUNTER → 2023-04-23 15:39 | Outpatient (BNVA) | payer MEDICARE, SELFPAY | PROVIDERS: PCP Family Medicine; Visit Provider Family Medicine | DX: R21 Rash and other nonspecific skin eruption (principal) | CPT/HCPCS: 88304; 88312 ==

== ENCOUNTER → 2023-05-01 09:01 | Outpatient (BNVA) | payer MEDICARE, SELFPAY | PROVIDERS: PCP Family Medicine; Visit Provider Dermatology | DX: L20.89 Other atopic dermatitis (principal); L30.0 Nummular dermatitis; L24.9 Irritant contact dermatitis, unspecified cause | CPT/HCPCS: 99204 ==

== ENCOUNTER → 2023-05-26 15:07 | Outpatient (BNVA) | payer MEDICARE, SELFPAY | PROVIDERS: PCP Family Medicine; Visit Provider Nurse Practitioner Family | DX: L30.0 Nummular dermatitis (principal); L82.1 Other seborrheic keratosis | CPT/HCPCS: 99213 ==

== ENCOUNTER 2023-12-13 09:35 | Emergency (ER) | payer MEDICARE, SELFPAY ==
[2023-12-13 09:46] VITALS: BP 220/108; PULSE 65; RESP 18; TEMP 36.6; O2SAT 97
[2023-12-13] MEDS: ketorolac 30 mg/mL INJ IVP (10:07)
[2023-12-13] MEDS: diphenhydrAMINE 50 mg/mL SDV 1mL IVP (10:08)
[2023-12-13] MEDS: sodium chloride 0.9% 1,000 ML 999 ML IV (10:09)
--- NOTE | 2023-12-13 10:23 | ED_ITS ---
HPI - Headache 2 General: Chief Complaint: Headache Stated Complaint: headache, N Time Seen by Provider: 12/13/23 09:44 Source: patient Mode of arrival: ambulatory History of Present Illness: 72-year-old female who presents to the e mergency room with complaint of headache that began this morning. She complaining of a throbbing frontal headache. She is currently on hydrochlorothiazide at home but no other antihypertensives. She denies any chest pain no head trauma. No takb-sbe-vxysidd medications denies any vision difficulties. MD elicited complaint: headache Location: right and frontal Quality & Timing: throbbing Exacerbating factors: none Relieving factors: nothing Associated symptoms: Deny chest pain, confusion, cough, diaphoresis, eye pain, eye redness, fever(s), lightheadedness, loss of vision, malaise, nausea, neck stiffness, numbness, paresthesias, photophobia, pre-syncope, rash, seizures, short of breath, sound sensitivity, syncope, vomiting or weakness Treatments prior to arrival: none Review of Systems 2 Const: Denies: fever(s), chills, malaise or diaphoresis Card: Denies: chest pain, lightheadedness, syncope or pre-syncope Resp: Denies: dyspnea GI: Denies: abdominal pain, nausea or vomiting : Denies: dysuria, urinary frequency or urinary urgency Musc: Denies: neck pain or back pain Skin/Breast: Denies: rash Neuro: Denies: confusion PFSH ED 2 PFSH: Medical History Nummular eczema Benign positional vertigo Abnormal mammogram of right breast ALANA (obstructive sleep apnea) Hypothalamic hypothyroidism Hypertension Social History Smoking and tobacco/nicotine status: never used tobacco/nicotine Alcohol intake: never Substance/Drug Use: never Physical Exam 2 Const: COMMON NORMALS: no acute distress GENERAL APPEARANCE: cooperative and comfortable ORIENTATION/CONSCIOUSNESS: Yes awake, Yes oriented to person, Yes oriented to place and Yes oriented to time HENMT: COMMON NORMALS: normocephalic, atraumatic and hearing grossly normal bilaterally HEAD & SCALP: normocephalic and atraumatic Eye: DIRECT OPHTHALMOSCOPY: No photophobia Resp: COMMON NORMALS: normal respiratory effort, No retractions, No use of accessory muscles and clear to auscultation bilaterally AUSCULTATION: clear to auscultation bilaterally Cardio: COMMON NORMALS: regular rate, regular rhythm and No murmurs present (Cardio) RATE: regular rate RHYTHM: regular rhythm GI: COMMON NORMALS: Soft to palpation and No hepatosplenomegaly present A USCULTATION: Yes normoactive bowel sounds PALPATION: Yes Soft to palpation, No Tenderness to palpation present (GI), No Guarding due to palpation present (GI) and Yes No hepatosplenomegaly present Extremity: COMMON NORMALS: normal to inspection, capillary refill normal, no clubbing, cyanosis or edema, no calf tenderness and no pedal edema Neuro: SENSORIUM/ORIENTATION: Yes oriented to person, Yes oriented to place and Yes oriented to time Skin: COMMON NORMALS: no rashes or lesions noted GENERAL SKIN EXAM: no rashes or lesions noted Course 2 Vital Signs: Vital signs: Vital Signs Temperature 97.8 F 12/13/23 09:46 Pulse Rate 73 12/13/23 14:06 Respiratory Rate 22 H 12/13/23 12:11 Blood Pressure 147/88 12/13/23 14:06 Pulse Oximetry 98 12/13/23 14:06 Oxygen Delivery Me thod Room Air 12/13/23 09:46 MDM - Headache Medical Decision Making Headache improved with blood pressure control medications given. Will discharge patient home started lisinopril 20 mg daily. Follow-up with primary care within the next week. Medical Records I reviewed the patient's medical records. Lab Data I reviewed the patient's lab results. 12/13/23 Unknown 12/13/23 Unknown Radiology Impressions Chest X-Ray 12/13/23 11:44 IMPRESSION: No acute cardiopulmonary process. Head CT 12/13/23 11:44 IMPRESSION: No large territorial infarct or intracranial bleed. Laboratory Results WBC 7.88 10^3/uL (3.29-11.43) 12/13/23 Unknown RBC 4.90 10^6/uL (3.85-5.65) 12/13/23 Unknown Hgb 13.60 g/dL (11.27-16.99) 12/13/23 Unknown Hct 42.5 % (36-47) 12/13/23 Unknown MCV 86.7 fl (85-98) 12/13/23 Unknown MCH 27.8 pg (27-33) 12/13/23 Unknown MCHC 32.0 g/dL (30-55) 12/13/23 Unknown RDW 13.9 % (12.1-15.1) 12/13/23 Unknown Plt Count 240 10^3/cmm (157-399) 12/13/23 Unknown MPV 11.2 fL (7.4-10.4) H 12/13/23 Unknown Neut % (Auto) 62.3 % 12/13/23 Unknown Lymph % (Auto) 28.0 % 12/13/23 Unknown [place] % (Auto) 4.7 % 12/13/23 Unknown Eos % (Auto) 3.8 % 12/13/23 Unknown Baso % (Auto) 0.9 % 12/13/23 Unknown Neut # (Auto) 4.91 10^3/uL (1.8-7.7) 12/13/23 Unknown Lymph # (Auto) 2.2 10^3/uL (0.8-4.8) 12/13/23 Unknown [place] # (Auto) 0.4 10^3/uL (0.2-0.9) 12/13/23 Unknown Eos # (Auto) 0.3 10^3/uL (0.0-0.8) 12/13/23 Unknown Baso # (Auto) 0.1 10^3/uL (0.0-0.1) 12/13/23 Unknown Nucleated RBC % (auto) 0 % 12/13/23 Unknown Nucleated RBCs # 0.0 /100WBC 12/13/23 Unknown Sodium 133 mmol/L (136-145) L 12/13/23 Unknown Potassium 4.1 mmol/L (3.5-5.1) 12/13/23 Unknown Chloride 97 mmol/L (98-107) L 12/13/23 Unknown Carbon Dioxide 25 mmol/L (22-29) 12/13/23 Unknown Anion Gap 15.1 (5-19) 12/13/23 Unknown BUN 8 mg/dL (8-23) 12/13/23 Unknown Creatinine 0.7 mg/dL (0.5-0.9) 12/13/23 Unknown GFR Calculation Not Reportable 12/13/23 Unknown Glucose 117 mg/dL (65-115) H 12/13/23 Unknown Calculated Osmolality 275 mOsm/kg (285-295) L 12/13/23 Unknown Calcium 9.3 mg/dL (8.5-10.5) 12/13/23 Unknown Total Bilirubin 0.3 mg/dL (0.15-1.2) 12/13/23 Unknown AST 24 U/L (0-32) 12/13/23 Unknown ALT 18 U/L (0-33) 12/13/23 Unknown Alkaline Phosphatase 120 U/L (35-105) H 12/13/23 Unknown Total Protein 7.6 g/dL (6.6-8.7) 12/13/23 Unknown Albumin 4.2 g/dL (3.5-5.2) 12/13/23 Unknown Globulin 3.4 g/dL (1.3-4.6) 12/13/23 Unknown All radiology interpretation(s) finalized by discharge Discharge Plan Discharge Patient Disposition: Home Clinical Impression: Hypertension, Headache Condition: Stable Prescriptions: New lisinopril 20 mg tablet 20 mg PO DAILY Qty: 30 0RF No Action aspirin 81 mg tablet,delayed release (DR/EC) 81 mg PO DAILY Qty: 30 0RF potassium chloride 10 mEq capsule, extended release 10 meq PO BEDTIME levothyroxine 75 mcg tablet 75 mcg PO QAM omeprazole 20 mg capsule,delayed release(DR/EC) 20 mg PO DAILY Discharge Orders: Discharge ED (Routine); Ordered 12/13/23 Ordered By: Geovany Mariscal Referrals: Solo Sanchez MD [Primary Care Provider] - Discharge Diet: Usual diet Discharge Activity: Resume usual activity Patient Instructions: Opioid Safety, Pain Management Activity Restrictions/Additional Instructions: Thank you for choosing [facility] for your healthcare needs today. Please realize this is an emergency room and that we are providing you with a medical screening exam and this may not be complete and all inclusive of all the testing and or work up that you may need to determine your ailment or severity of your illness. It is very important that you follow up as instructed or that you return to the Emergency Department should you have concerns or if your condition changes or worsens in any way. You were seen today with complaints of headache elevated blood pressure. Blood pressure improved with medications given. Recommend starting the antihypertensive 1 tablet daily. Recheck with your primary care doctor within the week Coding Level of Care Code ED Edge Molder for Meenakshi Paige
[2023-12-13] MEDS: hyDRALAzine 20 mg/mL INJ 1 mL IVP (10:28)
[2023-12-13] MEDS: enalaprilat 2.5 mg/2 mL SDV 1.25 MG IVP (11:13)
[2023-12-13 11:27] VITALS: BP 171/65; PULSE 97; RESP 23; O2SAT 97
[2023-12-13 11:33] VITALS: BP 191/54
--- NOTE | 2023-12-13 11:41 | PC.PHAR ---
pt verified medications-pt states she finished her macrobid 100mg q12h on 12/10/23 rx was filled on 12/03/23 7d/s-pt states no longer takes hydroxyzine pamoate 25mg tid ext shows last filled 09/11/23 30d/s-
--- NOTE | 2023-12-13 11:44 | CTR_ITS ---
PROCEDURE INFORMATION: Exam: CT Head Without Contrast Exam date and time: 12/13/2023 1:03 PM Age: 72 years old Clinical indication: Pain; Headache; Additional info: Headache elevated blood pressure TECHNIQUE: Imaging protocol: Computed tomography of the head without contrast. Radiation optimization: All CT scans at this facility use at least one of these dose optimization techniques: automated exposure control; mA and/or kV adjustment per patient size (includes targeted exams where dose is matched to clinical indication); or iterative reconstruction. COMPARISON: MR head wo con* [id number] 04/03/2023 8:32 AM RADIATION DOSE METRICS: Total DLP (mGy-cm): 1147.29 FINDINGS: Brain: Bilateral periventricular and centrum semiovale white matter hypodensities consistent with chronic ischemic small vessel disease. No recent infarct, intracranial bleed or mass effect. Cerebral ventricles: No ventriculomegaly. Paranasal sinuses: Visualized sinuses are unremarkable. No fluid levels. Mastoid air cells: Visualized mastoid air cells are well aerated. Orbital cavities: Bilateral cataract surgery. Bones: Unremarkable. No acute fracture. Soft tissues: Unremarkable. CT/CT head wo con* [id number] IMPRESSION: No large territorial infarct or intracranial bleed.
--- NOTE | 2023-12-13 11:44 | XRR_ITS ---
PROCEDURE INFORMATION: Exam: XR Chest Exam date and time: 12/13/2023 11:50 AM Age: 72 years old Clinical indication: Cough and dyspnea; Patient HX: Dyspnea; Cough TECHNIQUE: Imaging protocol: Radiologic exam of the chest. Views: 1 view. COMPARISON: CR XR chest 1V portable [id number] 11/06/2022 7:39 AM FINDINGS: Lungs: Unremarkable. No consolidation. Pleural spaces: Unremarkable. No pleural effusion. No pneumothorax. Heart/Mediastinum: Unremarkable. No cardiomegaly. Vasculature: Aortic arch calcifications. Unfolding of the thoracic aorta. Bones/joints: Moderate degenerative disease of bilateral acromioclavicular joints. XR/XR chest 1V portable [id number] IMPRESSION: No acute cardiopulmonary process.
[2023-12-13 11:52] LABS: Basophils # 0.1 10^3/uL (0.0-0.1); Basophils % 0.9 %; Eosinophils # 0.3 10^3/uL (0.0-0.8); Eosinophils % 3.8 %; Hematocrit 42.5 % (36-47); Lymphocytes # 2.2 10^3/uL (0.8-4.8); Mean Corpuscular Hemoglobin 27.8 pg (27-33); Mean Corpuscular Volume 86.7 fl (85-98); Mean Platelet Volume 11.2 fL (7.4-10.4); Monocytes # 0.4 10^3/uL (0.2-0.9); Monocytes % 4.7 %; Neutrophils # 4.91 10^3/uL (1.8-7.7); Neutrophils % 62.3 %; Nucleated Red Blood Cells % 0 %; Platelet Count 240 10^3/cmm (157-399); Red Cell Distribution Width 13.9 % (12.1-15.1); White Blood Count 7.88 10^3/uL (3.29-11.43)
[2023-12-13 12:05] LABS: Alanine Aminotransferase 18 U/L (0-33); Albumin Level 4.2 g/dL (3.5-5.2); Alkaline Phosphatase 120 U/L (35-105); Anion Gap 15.1 (5-19); Aspartate Amino Transferase 24 U/L (0-32); Blood Urea Nitrogen 8 mg/dL (8-23); Calcium 9.3 mg/dL (8.5-10.5); Carbon Dioxide 25 mmol/L (22-29); Chloride 97 mmol/L (98-107); Creatinine Clr Calc Pharmacy 65.9635; Globulin 3.4 g/dL (1.3-4.6); Glucose 117 mg/dL (65-115); Osmolality Calculated 275 mOsm/kg (285-295); Potassium 4.1 mmol/L (3.5-5.1); Sodium 133 mmol/L (136-145); Total Bilirubin 0.3 mg/dL (0.15-1.2); Total Protein 7.6 g/dL (6.6-8.7)
[2023-12-13 12:11] VITALS: BP 153/76; PULSE 86; RESP 22; O2SAT 98
--- NOTE | 2023-12-13 12:27 | ECG_ITS ---
[facility] Test Date: 2023-12-13 Pat Name: Nahed Carcamo Department: Room: Gender: Female Shoe Stitcher Odd: : 1950 Requested By: Geovany Menjivar Order Number: [id number] Reading MD: Nico Kearney M.D. Measurements Intervals [place] Rate: 84 P: 60 [place]: 135 QRS: 21 QRSD: 82 T: -60 QT: 305 QTc: 362 Interpretive Statements SINUS RHYTHM NONSPECIFIC ST & T-WAVE ABNORMALITY Compared to ECG 11/06/2022 07:35:05 No significant changes Electronically Signed On 12-14-2023 12:12:58 CDT by Nico Kearney M.D. [id number]
[2023-12-13] MEDS: valproic acid inj 500 MG in sodium chloride 0.9% 50 ML 55 MG IV (12:52)
[2023-12-13 12:56] VITALS: BP 147/88; PULSE 73; O2SAT 98
[2023-12-13 14:06] VITALS: BP 147/88; PULSE 73; O2SAT 98
== END 2023-12-13 14:07 | disposition home or self-care (01) ==
PROVIDERS: Emergency Provider Family Medicine; PCP Family Medicine
DX: R51.9 Headache, unspecified (principal); I10 Essential (primary) hypertension; Z79.82 Long term (current) use of aspirin
CPT/HCPCS: 70450; 71045; 80053; 85025; 93005; 96361; 96365; 96375; 99285; J0360; J1200; J1885; J3490; J7030

== ENCOUNTER 2023-12-15 16:00 | Emergency (ER) | payer MEDICARE, SELFPAY ==
[2023-12-15 16:04] VITALS: BP 213/89; PULSE 72; RESP 16; TEMP 36.4; O2SAT 95
--- NOTE | 2023-12-15 16:10 | XRR_ITS ---
PROCEDURE INFORMATION: Exam: XR Chest Exam date and time: 12/15/2023 4:19 PM Age: 72 years old Clinical indication: Other: Paresthesia TECHNIQUE: Imaging protocol: Radiologic exam of the chest. Views: 1 view. COMPARISON: CR (CHEST, ) 12/13/2023 11:50 AM FINDINGS: Lungs: Unremarkable. No consolidation. Pleural spaces: Unremarkable. No pleural effusion. No pneumothorax. Heart/Mediastinum: Unremarkable. No cardiomegaly. Bones/joints: Unremarkable. XR/XR chest 1V portable [id number] IMPRESSION: No acute findings.
--- NOTE | 2023-12-15 16:10 | CTR_ITS ---
PROCEDURE INFORMATION: Exam: CT Head Without Contrast Exam date and time: 12/15/2023 4:43 PM Age: 72 years old Clinical indication: Numbness / parasthesia; Patient HX: PT C/O left face/left leg tingling/numbness intermittently since awakening this am at 0300. ; Additional info: Paresthesia TECHNIQUE: Imaging protocol: Computed tomography of the head without contrast. Radiation optimization: All CT scans at this facility use at least one of these dose optimization techniques: automated exposure control; mA and/or kV adjustment per patient size (includes targeted exams where dose is matched to clinical indication); or iterative reconstruction. COMPARISON: CT head wo con* [id number] 12/13/2023 1:03 PM RADIATION DOSE METRICS: Total DLP (mGy-cm): 1075 FINDINGS: Brain: Sequela of moderate chronic microvascular ischemic changes with periventricular and deep white matter hypoattenuation. Bocanegra-white differentiation is otherwise maintained. No evidence of intra-axial or extra-axial hemorrhage. No mass effect or midline shift. Basilar cisterns are patent. Cerebral ventricles: No hydrocephalus. Paranasal sinuses: The visualized paranasal sinuses are well aerated. Mastoid air cells: The visualized mastoids and middle ears are clear. Bones: Unremarkable. No acute fracture. Soft tissues: No gross soft tissue abnormality. CT/CT head wo con* [id number] IMPRESSION: 1. No acute intracranial abnormality.
--- NOTE | 2023-12-15 16:16 | ED_ITS ---
HPI - Neuro Symptoms/Deficit 2 General: Chief Complaint: Neuro Symptoms/Deficit Stated Complaint: neuro symptoms Time Seen by Provider: 12/15/23 16:10 Source: patient Mode of arrival: ambulatory Limitations: no limitations History of Present Illness: 72-year-old female who states that she s een here over the weekend for having headache was diagnosed with hypertension we will start lisinopril states since then she is continue to be hypertensive said she has had some intermittent left- sided numbness starting this morning at 3 AM states that went down her left arm left leg since resolved she denies any headache today she had no slurred speech denies any weakness. Associated symptoms: Deny chest pain, nausea or vomiting Review of Systems 2 Const: Denies: fever(s), chills, body aches or change in appetite Eyes: Denies: blurry vision ENMT: Denies: throat pain or dental pain Card: Denies: chest pain Resp: Denies: dyspnea GI: Denies: abdominal pain, nausea, vomiting or diarrhea Musc: Denies: neck pain or back pain Skin/Breast: Denies: rash Neuro: Reports: numbness in extremities; Denies: weakness in extremities PFSH ED 2 PFSH: Medical History Nummular eczema Benign positional vertigo Abnormal mammogram of right breast ALANA (obstructive sleep apnea) Hypothalamic hypothyroidism Hypertension Social History Smoking and tobacco/nicotine status: never used tobacco/nicotine Alcohol intake: never Substance/Drug Use: never NIH stroke score 2 NIHSS: Level Of Consciousness - 1a: 0 Level Of Consciousness Questions - 1b: Both Correct Level Of Consciousness Commands - 1c: Both Correct Best Gaze - 2: Normal Visual Diallo - 3: No Visual Loss Facial Palsy - 4: N ormal Motor Arm Right - 5: No Drift Motor Arm Left - 5: No Drift Motor Leg Right - 6: No Drift Motor Leg Left - 6: No Drift Limb Ataxia - 7: A bsent Sensory - 8: Normal Best Language - 9: No Aphasia Dysarthia - 10: Normal Extinction And Inattention - 11: 0 Score: Total Score: 0 Physical Exam 2 Const: COMMON NORMALS: no acute distress, patient oriented x3 and healthy appearing HENMT: COMMON NORMALS: normocephalic and atraumatic HEAD & SCALP: n ormocephalic and atraumatic Eye: COMMON NORMALS: Equal, round and reactive pupils present and EOMs intact bilaterally PUPIL: Yes Equal, round and reactive pupils present Neck/C-Spine: COMMON NORMALS: full ROM and supple Chest: COMMONS NORMALS: normal inspection of the chest and normal palpation of entire chest wall Resp: COMMON NORMALS: normal respiratory effort, No retractions, No use of accessory muscles and clear to auscultation bilaterally AUSCULTATION: clear to auscultation bilaterally Cardio: COMMON NORMALS: regular rate, regular rhythm and No murmurs present (Cardio) RATE: regular rate RHYTHM: regular rhythm GI: COMMON NORMALS: Normal to inspection, nondistended, normoactive bowel sounds present, Soft to palpation, non-tender and no masses PALPATION: Yes Soft to palpation Extremity: COMMON NORMALS: normal to inspection and full ROM Neuro: COMMON NORMALS: patient oriented x3, moves all extremities and no focal motor deficits Psych: COMMON NORMALS: mental status grossly normal, Normal thought process present and cooperative THOUGHT PROCESS: Normal thought process present Skin: COMMON NORMALS: no rashes or lesions noted and no wounds GENERAL SKIN EXAM: no rashes or lesions noted Course 2 Vital Signs: Vital signs: Vital Signs Temperature 97.5 F L 12/15/23 16:04 Pulse Rate 76 12/15/23 18:52 Respiratory Rate 21 H 12/15/23 18:52 Blood Pressure 179/82 12/15/23 18:52 Pulse Oximetry 96 12/15/23 18:52 Oxygen Delivery Me thod Room Air 12/15/23 18:52 MDM - Neuro Symptoms/Deficit Medical Decision Making Patient presents here with some paresthesia along with hypertension her paresthesias have resolved she has no signs of a stroke blood pressure is improved here blood work imaging here is all normal we will start her on metoprolol as well she is follow-up with PCP return if worsening. Medical Records I reviewed the patient's medical records. Lab Data I reviewed the patient's lab results. 12/15/23 16:20 12/15/23 17:42 Radiology Impressions Chest X-Ray 12/15/23 16:10 IMPRESSION: No acute findings. Head CT 12/15/23 16:10 IMPRESSION: 1. No acute intracranial abnormality. Laboratory Results WBC 7.52 10^3/uL (3.29-11.43) 12/15/23 16:20 RBC 4.62 10^6/uL (3.85-5.65) 12/15/23 16:20 Hgb 12.90 g/dL (11.27-16.99) 12/15/23 16:20 Hct 39.9 % (36-47) 12/15/23 16:20 MCV 86.4 fl (85-98) 12/15/23 16:20 MCH 27.9 pg (27-33) 12/15/23 16:20 MCHC 32.3 g/dL (30-55) 12/15/23 16:20 RDW 14.1 % (12.1-15.1) 12/15/23 16:20 Plt Count 230 10^3/cmm (157-399) 12/15/23 16:20 MPV 10.9 fL (7.4-10.4) H 12/15/23 16:20 Neut % (Auto) 46.7 % 12/15/23 16:20 Lymph % (Auto) 40.0 % 12/15/23 16:20 [place] % (Auto) 7.3 % 12/15/23 16:20 Eos % (Auto) 4.9 % 12/15/23 16:20 Baso % (Auto) 0.8 % 12/15/23 16:20 Neut # (Auto) 3.51 10^3/uL (1.8-7.7) 12/15/23 16:20 Lymph # (Auto) 3.0 10^3/uL (0.8-4.8) 12/15/23 16:20 [place] # (Auto) 0.6 10^3/uL (0.2-0.9) 12/15/23 16:20 Eos # (Auto) 0.4 10^3/uL (0.0-0.8) 12/15/23 16:20 Baso # (Auto) 0.1 10^3/uL (0.0-0.1) 12/15/23 16:20 Nucleated RBC % (auto) 0 % 12/15/23 16:20 Nucleated RBCs # 0.0 /100WBC 12/15/23 16:20 PT 12.70 SECONDS (12.1-14.9) 12/15/23 17:42 INR 0.93 (0.8-1.2) 12/15/23 17:42 Sodium 141 mmol/L (136-145) 12/15/23 17:42 Potassium 3.6 mmol/L (3.5-5.1) 12/15/23 17:42 Chloride 104 mmol/L (98-107) 12/15/23 17:42 Carbon Dioxide 25 mmol/L (22-29) 12/15/23 17:42 Anion Gap 15.6 (5-19) 12/15/23 17:42 BUN 8 mg/dL (8-23) 12/15/23 17:42 Creatinine 0.7 mg/dL (0.5-0.9) 12/15/23 17:42 GFR Calculation Not Reportable 12/15/23 17:42 Glucose 141 mg/dL (65-115) H 12/15/23 17:42 POC Glucose 106 mg/dL (70-110) 12/15/23 16:03 Calculated Osmolality 293 mOsm/kg (285-295) 12/15/23 17:42 Calcium 9.0 mg/dL (8.5-10.5) 12/15/23 17:42 Total Bilirubin 0.2 mg/dL (0.15-1.2) 12/15/23 17:42 AST 20 U/L (0-32) 12/15/23 17:42 ALT 14 U/L (0-33) 12/15/23 17:42 Alkaline Phosphatase 121 U/L (35-105) H 12/15/23 17:42 Total Protein 7.9 g/dL (6.6-8.7) 12/15/23 17:42 Albumin 4.3 g/dL (3.5-5.2) 12/15/23 17:42 Globulin 3.6 g/dL (1.3-4.6) 12/15/23 17:42 TSH 3.30 uIU/mL (0.27-4.20) 12/15/23 17:42 All radiology interpretation(s) finalized by discharge EKG Data EKG 1: I personally reviewed and interpreted this EKG as follows: EKG interpretation date: 12/15/23 EKG interpretation time: 16:17 Interpretation: nsr hr [address] or t wave abnormalities qrs 86 qtc 417 Discharge Plan Discharge Patient Disposition: Home Clinical Impression: Hypertension, Paresthesia Condition: Stable Prescriptions: New metoprolol succinate 50 mg tablet extended release 24 hr 50 mg PO BID Qty: 30 0RF No Action aspirin 81 mg tablet,delayed release (DR/EC) 81 mg PO DAILY Qty: 30 0RF potassium chloride 10 mEq capsule, extended release 10 meq PO BEDTIME levothyroxine 75 mcg tablet 75 mcg PO QAM omeprazole 20 mg capsule,delayed release(DR/EC) 20 mg PO DAILY lisinopril 20 mg tablet 20 mg PO DAILY Qty: 30 0RF Discharge Orders: Discharge ED (Routine); Ordered 12/15/23 Ordered By: Long Daugherty Referrals: Solo Sanchez MD [Primary Care Provider] - 1-3 days Discharge Diet: Advance as tolerated Discharge Activity: Resume usual activity Patient Instructions: Paresthesia (ED), Hypertension (ED) Coding Level of Care Code ED 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
--- NOTE | 2023-12-15 16:17 | ECG_ITS ---
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 Measurements Intervals [place] Rate: 65 P: 27 SD: 140 QRS: 3 QRSD: 86 T: 82 QT: 406 QTc: 423 Interpretive Statements SINUS RHYTHM NONSPECIFIC T-WAVE ABNORMALITY Compared to ECG 12/13/2023 12:27:09 No significant changes Electronically Signed On 12-15-2023 23:21:36 CDT by Nico Kearney M.D. [id number]
[2023-12-15 16:25] LABS: Glucose Point of Care 106 mg/dL (70-110)
[2023-12-15 16:27] LABS: Basophils # 0.1 10^3/uL (0.0-0.1); Basophils % 0.8 %; Eosinophils # 0.4 10^3/uL (0.0-0.8); Eosinophils % 4.9 %; Hematocrit 39.9 % (36-47); Mean Corpuscular HGB Conc 32.3 g/dL (30-55); Mean Corpuscular Hemoglobin 27.9 pg (27-33); Mean Corpuscular Volume 86.4 fl (85-98); Mean Platelet Volume 10.9 fL (7.4-10.4); Monocytes # 0.6 10^3/uL (0.2-0.9); Monocytes % 7.3 %; Neutrophils # 3.51 10^3/uL (1.8-7.7); Neutrophils % 46.7 %; Nucleated Red Blood Cells % 0 %; Platelet Count 230 10^3/cmm (157-399); Red Blood Count 4.62 10^6/uL (3.85-5.65); Red Cell Distribution Width 14.1 % (12.1-15.1); White Blood Count 7.52 10^3/uL (3.29-11.43)
[2023-12-15] MEDS: hyDRALAzine 20 mg/mL INJ 1 mL 10 MG IVP ×2 (16:36→18:40)
[2023-12-15 17:07] VITALS: BP 210/83
[2023-12-15 17:55] VITALS: BP 198/76
[2023-12-15 18:08] LABS: INR 0.93 (0.8-1.2)
[2023-12-15 18:36] LABS: Alanine Aminotransferase 14 U/L (0-33); Albumin Level 4.3 g/dL (3.5-5.2); Alkaline Phosphatase 121 U/L (35-105); Anion Gap 15.6 (5-19); Aspartate Amino Transferase 20 U/L (0-32); Blood Urea Nitrogen 8 mg/dL (8-23); Carbon Dioxide 25 mmol/L (22-29); Chloride 104 mmol/L (98-107); Creatinine Clr Calc Pharmacy 65.9635; Globulin 3.6 g/dL (1.3-4.6); Glucose 141 mg/dL (65-115); Osmolality Calculated 293 mOsm/kg (285-295); Potassium 3.6 mmol/L (3.5-5.1); Sodium 141 mmol/L (136-145); Total Bilirubin 0.2 mg/dL (0.15-1.2); Total Protein 7.9 g/dL (6.6-8.7)
[2023-12-15 18:44] VITALS: BP 197/82; PULSE 65; RESP 15
[2023-12-15 18:52] VITALS: BP 179/82; PULSE 76; RESP 21; O2SAT 96
[2023-12-15 19:10] VITALS: BP 189/85; PULSE 96; O2SAT 96
== END 2023-12-15 19:11 | disposition home or self-care (01) ==
PROVIDERS: Emergency Provider Emergency Medicine; PCP Family Medicine
DX: I10 Essential (primary) hypertension (principal); R20.2 Paresthesia of skin; Z79.82 Long term (current) use of aspirin
CPT/HCPCS: 36415; 36416; 70450; 71045; 80053; 82962; 84443; 85025; 85610; 93005; 96374; 96376; 99285; J0360

== ENCOUNTER → 2023-12-17 15:05 | Outpatient (BNVA) | payer MEDICARE, SELFPAY | PROVIDERS: PCP Nurse Practitioner; Visit Provider Nurse Practitioner | DX: R73.9 Hyperglycemia, unspecified (principal) | CPT/HCPCS: 83036 ==

== ENCOUNTER → 2024-02-23 08:23 | Outpatient (BNVA) | payer MEDICARE, SELFPAY | PROVIDERS: PCP Nurse Practitioner; Visit Provider Nurse Practitioner | DX: I10 Essential (primary) hypertension (principal) | CPT/HCPCS: 80048 ==

== ENCOUNTER → 2024-02-26 08:23 | Outpatient (BNVA) | payer MEDICARE, SELFPAY | PROVIDERS: PCP Nurse Practitioner; Visit Provider Nurse Practitioner | DX: I10 Essential (primary) hypertension (principal); E03.8 Other specified hypothyroidism | CPT/HCPCS: 84439; 84443; 84481 ==

== ENCOUNTER → 2024-04-06 08:46 | Outpatient (BNVA) | payer MEDICARE, SELFPAY | PROVIDERS: PCP Nurse Practitioner; Visit Provider Nurse Practitioner | DX: E03.8 Other specified hypothyroidism (principal) | CPT/HCPCS: 82607; 84443 ==

== ENCOUNTER 2024-04-16 09:41 | Outpatient (CLI) | payer MEDICARE, SELFPAY ==
--- NOTE | 2024-04-16 10:15 | MR_ITS ---
WS: [id number] MRI CERVICAL SPINE NONCONTRAST TECHNIQUE: Sagittal T1, T2 and STIR imaging. Axial T2, gradient, and fiesta imaging. CLINICAL INFORMATION: R20.2 - Paresthesia of skin COMPARISON: MRI 2019 FINDINGS: Slight exaggeration of the normal cervical lordosis. Small vessel changes in the polly. Mild spondylit ic changes cervical spine. Slight retrolisthesis C3 on C4. Disc bulging worse at C5-6. C2-C3: Mild facet arthropathy. Spinal canal and foramen are patent. C3-C4: Mild disc bulge and osteophytic ridging. Mild facet arthropathy. Mild bilateral foraminal narr owing. C4-C5: Mild disc osteophyte ridging. Moderate facet arthropathy. Mild LEFT foraminal narrowing. Spina l canal is patent. C5-C6: Slight retrolisthesis. Disc osteophyte complex with slight contact of the cervical cord. Mild bilateral bony foraminal narrowing. C6-C7: Endplate osteophytic ridging. Mild LEFT greater than RIGHT bony foraminal narrowing. Spinal ca nal is patent. C7-T1: Mild LEFT bony foraminal narrowing. Spinal canal and RIGHT foramen are patent. Visualized brain stem structures: Normal. Prevertebral soft tissues: Normal. MR/MR cervical spin wo con* [id number] IMPRESSION: Overall no significant changes since 2019. 1. Disc osteophyte complex C5-6 with mild central canal stenosis with slight c ontact of the cervical cord. Mild bilateral bony foraminal narrowing at this le tony. 2. Otherwise mild bony foraminal narrowing worse at bilateral C3-4, LEFT C4-5, LEFT C6-7, and LEFT C7-T1. 3. Moderate facet arthropathy C3-C4.
== END 2024-04-16 09:42 | disposition home or self-care (01) ==
LOC: RAD 09:42
PROVIDERS: PCP Nurse Practitioner; Visit Provider Nurse Practitioner
DX: R20.2 Paresthesia of skin (principal); R94.02 Abnormal brain scan; M50.322 Other cervical disc degeneration at C5-C6 level; M47.892 Other spondylosis, cervical region; M25.78 Osteophyte, vertebrae; M48.03 Spinal stenosis, cervicothoracic region
CPT/HCPCS: 72141; 82607; 84443

== ENCOUNTER 2024-05-11 06:30 | Outpatient (RCR) | payer MEDICARE, SELFPAY | END 2024-06-10 23:59 | disposition home or self-care (01) | LOC: APT 06:30 | PROVIDERS: Visit Provider Nurse Practitioner | DX: M48.02 Spinal stenosis, cervical region (principal) | CPT/HCPCS: 97110; 97161; 97530 ==

== ENCOUNTER 2024-06-11 06:00 | Outpatient (RCR) | payer MEDICARE, SELFPAY | END 2024-07-10 23:59 | disposition home or self-care (01) | LOC: APT 06:00 | PROVIDERS: PCP Nurse Practitioner; Visit Provider Nurse Practitioner | DX: M48.02 Spinal stenosis, cervical region (principal) | CPT/HCPCS: 97110; 97140; 97530 ==

== ENCOUNTER → 2024-06-29 09:07 | Outpatient (BNVA) | payer MEDICARE, SELFPAY | PROVIDERS: PCP Nurse Practitioner; Visit Provider Nurse Practitioner | DX: I10 Essential (primary) hypertension (principal) | CPT/HCPCS: 80048; 84439; 84443; 84481 ==

== ENCOUNTER 2024-07-11 06:00 | Outpatient (RCR) | payer MEDICARE, SELFPAY | END 2024-08-10 23:59 | disposition home or self-care (01) | LOC: APT 06:00 | PROVIDERS: PCP Nurse Practitioner; Visit Provider Nurse Practitioner | DX: M48.02 Spinal stenosis, cervical region (principal) | CPT/HCPCS: 97110; 97112; 97530 ==

== ENCOUNTER 2024-07-14 08:19 | Outpatient (CLI) | payer MEDICARE, SELFPAY ==
--- NOTE | 2024-07-14 08:30 | USCV_ITS ---
Nahed Carcamo Age: 73 Gender: F : 1950 Exam Date: 07/14/2024 08:28 Ordering Phys: Whitney Morris Technologist: ASHLEY Exam Location: [facility] [place] Indication: Aortic Velocity @ SMA (cm/s) 54 RIGHT KIDNEY LEFT KIDNEY Velocity (cm/s) Velocity (cm/s) Sys/Valdez Sys/Valdez Resistive Index Resistive Index 60.2 / 12.6 0.79 Proximal Renal Artery 74.4 / 13.4 0.82 34.3 / 9.6 0.72 Mid Renal Artery 62.8 / 10.5 0.83 36.2 / 6.9 0.81 Distal Renal Artery 61.3 / 14.8 0.76 32.9 / 8.1 0.75 Hilar 71.5 / 11.9 0.83 24.2 / 4.9 0.80 Upper Pole 30.0 / 7.3 0.27 14.9 / 3.9 0.74 Mid Pole 24.6 / 3.3 0.21 13.8 / 3.9 0.72 Lower Pole 30.7 / 5.3 0.24 1.11 Renal Aortic Ratio 1.37 Accleration Time (sec) 0.22 Hilar 0.05 0.05 Upper Pole 0.24 0.16 Mid Pole 0.21 0.18 Lower Pole 0.27 9.4 Kidney Length (cm) 10.6 CONCLUSIONS No sonographic evidence of hemodynamically significant renal artery stenosis bilaterally. No hydronephrosis in either kidney Norberto Bah MD (Electronically Signed) Final Date: 14 July 2024 11:29 S
== END 2024-07-14 08:20 | disposition home or self-care (01) ==
LOC: RAD 08:20
PROVIDERS: PCP Nurse Practitioner; Visit Provider Nurse Practitioner
DX: I10 Essential (primary) hypertension (principal)
CPT/HCPCS: 93975

== ENCOUNTER → 2024-09-09 09:39 | Outpatient (BNVA) | payer MEDICARE, SELFPAY | PROVIDERS: PCP Nurse Practitioner; Visit Provider Nurse Practitioner | DX: I10 Essential (primary) hypertension (principal); E03.8 Other specified hypothyroidism; R73.9 Hyperglycemia, unspecified; E55.9 Vitamin D deficiency, unspecified | CPT/HCPCS: 80053; 80061; 82306; 83036; 84439; 84443; 84481 ==

== ENCOUNTER → 2024-11-22 13:13 | Outpatient (BNVA) | payer MEDICARE, SELFPAY | PROVIDERS: PCP Nurse Practitioner; Visit Provider Nurse Practitioner | DX: E55.9 Vitamin D deficiency, unspecified (principal); E03.8 Other specified hypothyroidism; I10 Essential (primary) hypertension; R00.0 Tachycardia, unspecified; K21.9 Gastro-esophageal reflux disease without esophagitis | CPT/HCPCS: 80053; 82306; 84439; 84443; 84481 ==

== ENCOUNTER 2024-12-21 12:57 | Outpatient (CLI) | payer MEDICARE, SELFPAY ==
--- NOTE | 2024-12-21 13:00 | MM_ITS ---
WS: [id number] BILATERAL 3D TOMOSYNTHESIS DIGITAL SCREENING MAMMOGRAPHY WITH CAD CLINICAL INFORMATION: Z12.31 - Encounter for screening mammogram for malignant ... HISTORY: Screening mammogram. No current complaints. COMPARISON: 2022 TECHNIQUE: Bilateral CC and MLO views. FINDINGS: Scattered fibroglandular densities bilaterally. No suspicious focal mass, asymmetry, calcifications, or architectural distortion. No evidence of malignancy. Incidental punctate and lucent centered calcifications. Vascular calcifications. MM/MM [facility] tomosynthesis [id number] IMPRESSION: DENSITY: There are scattered areas of fibroglandular density. BI-RADS: 2 - Benign. FOLLOW UP: 1 Year Follow-up Recommend return to annual screening mammography.
== END 2024-12-21 12:58 | disposition home or self-care (01) ==
PROVIDERS: PCP Nurse Practitioner; Visit Provider Nurse Practitioner
DX: Z12.31 Encounter for screening mammogram for malignant neoplasm of breast (principal); R92.323 Mammographic fibroglandular density, bilateral breasts; R92.1 Mammographic calcification found on diagnostic imaging of breast
CPT/HCPCS: 77063; 77067

== ENCOUNTER → 2025-02-03 11:25 | Outpatient (BNVA) | payer MEDICARE, SELFPAY | PROVIDERS: PCP Nurse Practitioner; Visit Provider Family Medicine | DX: N39.0 Urinary tract infection, site not specified (principal) | CPT/HCPCS: 81000 ==

== ENCOUNTER → 2025-02-21 16:04 | Outpatient (BNVA) | payer MEDICARE, SELFPAY | PROVIDERS: PCP Nurse Practitioner; Visit Provider Nurse Practitioner | DX: E55.9 Vitamin D deficiency, unspecified (principal); E03.8 Other specified hypothyroidism | CPT/HCPCS: 80053; 80061; 82306; 82607; 84439; 84443; 84481 ==

== ENCOUNTER 2025-06-01 07:51 | Outpatient (CLI) | payer MEDICARE, SELFPAY ==
--- NOTE | 2025-06-01 08:00 | MR_ITS ---
WS: [id number] MRI BRAIN WITHOUT CONTRAST HISTORY: S00.93XA - Contusion of unspecified part of head, initial... COMPARISON: CT 12/15/2023, prior MRI 04/03/2023 TECHNIQUE: Diffusion imaging, multiplanar T1, T2 and FLAIR imaging obtained. Normal diffusion imaging. No acute infarct. Moderate volume loss in the cerebrum and cerebellum. Severe T2 and FLAIR signal hyperintensities throughout the white matter. Confluent and patchy chronic microvascular ischemic changes. Extensive prior ischemic changes in the polly. No prior infarct. Mild hippocampal atrophy. Ventricles and extra-axial spaces are normal. No inferior displacement of the cerebellar tonsils. The sella turcica and pituitary gland are unremarkable. Dural venous sinuses and torres martinez of [place] demonstrate no abnormality on this unenhanced studies. Paranasal sinuses: Clear. Mastoid air cells: Normal. Calvarium and scalp: Intact. MR/MR head wo con* [id number] IMPRESSION: 1. No acute infarct or hemorrhage. 2. Severe chronic microvascular changes in the supratentorial white matter and also in the polly. Mild progression since 04/03/2023. 3. Moderate volume loss in the cerebrum and cerebellum.
== END 2025-06-01 07:52 | disposition home or self-care (01) ==
LOC: RAD 07:55
PROVIDERS: PCP Nurse Practitioner; Visit Provider Nurse Practitioner
DX: S00.93XA Contusion of unspecified part of head, initial encounter (principal); X58.XXXA Exposure to other specified factors, initial encounter
CPT/HCPCS: 70551

== ENCOUNTER → 2025-07-21 09:19 | Outpatient (BNVA) | payer MEDICARE, SELFPAY | PROVIDERS: PCP Nurse Practitioner; Visit Provider Nurse Practitioner | DX: E03.8 Other specified hypothyroidism (principal); E55.9 Vitamin D deficiency, unspecified | CPT/HCPCS: 80053; 80061; 82306; 84439; 84443; 84481; 85025 ==